=== PATIENT | female | born 1950 | race Caucasian/White ===

== ENCOUNTER 2022-09-06 12:12 | Inpatient (IN) | payer MEDICARE ==
[2022-09-06] MEDS ORDERED: Ondansetron PF 4 MG/2 ML Vial ONE (12:23)
[2022-09-06] MEDS ORDERED: Morphine 4 MG/ML VIAL ONE (12:23)
[2022-09-06] MEDS ORDERED: Haloperidol Lactate 5 MG/ML VIAL ONE ×2 (12:57→14:30)
[2022-09-06 13:13] LABS: ALT (SGPT) 167 U/L (8-55); AST (SGOT) 357 U/L (5-34); Albumin 2.5 g/dL (3.4-4.8); Alkaline Phosphatase 357 U/L (40-110); Anion Gap 13 mmol/L (10-20); BUN (Urea Nitrogen) 7 mg/dL (9.8-20.1); Bilirubin, Direct 6.2 mg/dL (0.1-0.3); Bilirubin, Total 8.5 mg/dL (0.2-1.2); Calc. Creatinine Clearance 0 mL/min (70-130); Calcium 8.3 mg/dL (7.8-10.44); Carbon Dioxide 25 mmol/L (23-31); Chloride 93 mmol/L (98-107); Eosinophils 1 % (0-10); Estimated GFR 90; Glucose 118 mg/dL (80-115); Hemoglobin 11.3 g/dL (12.0-16.0); Lipase 41 U/L (8-78); Lymphocytes 17 % (21-51); MDiff Complete? YES; Macrocytosis MODERATE=16-30 cells (100X) (0-5/hpf); Mean Corpuscular Hemoglobin 37.1 pg (27.0-31.0); Mean Platelet Volume 7.8 fL (7.4-10.4); Monocytes 9 % (0-10); Neutrophil 65 % (42-75); Platelet Count 161 10x3/uL (130-400); Platelet Morphology Comment Appears Adequate; Polychromasia SLIGHT = 2-3 cells (100X) (0-2/hpf); Potassium 3.3 mmol/L (3.5-5.1); Protein, Total 6.7 g/dL (5.8-8.1); RBC Distribution Width 15.4 % (11.5-14.5); Reactive Lymphocytes 8 % (0-10); Red Blood Cell (RBC) Count 3.05 mill/uL (4.20-5.40); Sodium 128 mmol/L (136-145); Target Cells SLIGHT = 2-5 cells (100X) (0-1/hpf); White Blood Cell (WBC) Count 10.3 10x3/uL (4.8-10.8)
[2022-09-06] MEDS ORDERED: Vancomycin 1 GM/200 ML (FROZEN) BAG ONE (13:46)
[2022-09-06] MEDS ORDERED: Senokot S 8.6-50 MG TAB PO PRN (14:17)
[2022-09-06] MEDS ORDERED: Ondansetron PF 4 MG/2 ML Vial IVP PRN (14:17)
[2022-09-06] MEDS ORDERED: Ondansetron ODT 4 MG TAB PO PRN (14:17)
[2022-09-06] MEDS ORDERED: Calcium Carbonate 500 MG ChewTAB PO PRN (14:17)
[2022-09-06] MEDS ORDERED: Albuterol Sulfate 2.5 mg/3 ml Neb NEB PRN (14:20)
[2022-09-06] MEDS ORDERED: Morphine 2 MG/ML VIAL SLOW IVP PRN (16:00)
[2022-09-06 16:01] LABS: Lactic Acid 1.9 mmol/L (0.5-2.2)
[2022-09-06 17:03] LABS: INR-International Normal Ratio 1.2; PTT 36.3 sec (22.9-36.1); Prothrombin Time 15.7 sec (12.0-14.7)
[2022-09-06] MEDS ORDERED: FLU VACC QS2022-23(65YR UP)/PF 240 MCG/0.7 ML SYRINGE IM ONE (17:30)
[2022-09-06] MEDS ORDERED: Morphine 4 MG/ML VIAL SLOW IVP PRN (17:30)
[2022-09-06] MEDS: Sodium Chloride 0.9% 1,000 ML IV SCH (17:38)
[2022-09-06] MEDS: Potassium Chloride 20 MEQ in Premix Bag 1 BAG IVPB SCH (17:38)
[2022-09-06 17:50] LABS: SARS-CoV-2 NAA Rapid Test Not Detected (NotDetected)
[2022-09-06 19:13] LABS: HBSAg Index 0.27 S/CO (0-0.99); Hep A IgM AB Non-Reactive (NonReactive); Hep A IgM S/CO 0.26 S/CO (0-0.79); Hep B Surf Ag Non-Reactive S/CO (NonReactive); Hep C IgG Ab Non-Reactive (NonReactive); Hep C Index 0.16 S/CO (0-0.79); Hepatitis B Core IgM Abs Non-Reactive (NonReactive)
[2022-09-06] MEDS ORDERED: Potassium Chloride 20 MEQ in Premix Bag 1 BAG IVPB SCH (19:15)
[2022-09-06] MEDS: Pantoprazole 40 MG VIAL IVP SCH (21:12)
[2022-09-07] MEDS: Sodium Chloride 0.9% 1,000 ML IV SCH ×2 (00:30→08:36)
[2022-09-07 06:11] LABS: #Lymphocytes 1.5 thou/uL (1.20-3.40); #Monocytes 1.6 thou/uL (0.11-0.59); #Neutrophils 9.2 thou/uL (1.40-6.50); %Eosinophils 0.3 % (0.0-10.0); %Lymphocytes 12.1 % (21.0-51.0); %Monocytes 12.8 % (0.0-10.0); %Neutrophils 74.8 % (42.0-75.0); Hemoglobin 9.4 g/dL (12.0-16.0); Mean Corpuscular HGB CONC 32.7 g/dL (32.0-36.0); Mean Corpuscular Hemoglobin 37.3 pg (27.0-31.0); Mean Platelet Volume 7.6 fL (7.4-10.4); Platelet Count 131 10x3/uL (130-400); RBC Distribution Width 15.7 % (11.5-14.5); Red Blood Cell (RBC) Count 2.51 mill/uL (4.20-5.40); White Blood Cell (WBC) Count 12.3 10x3/uL (4.8-10.8)
[2022-09-07 06:29] LABS: INR-International Normal Ratio 1.3; Prothrombin Time 16.3 sec (12.0-14.7)
[2022-09-07 06:35] LABS: ALT (SGPT) 192 U/L (8-55); AST (SGOT) 450 U/L (5-34); Alkaline Phosphatase 333 U/L (40-110); Anion Gap 12 mmol/L (10-20); BUN (Urea Nitrogen) 12 mg/dL (9.8-20.1); Bilirubin, Total 8.4 mg/dL (0.2-1.2); Calc. Creatinine Clearance 41 mL/min (70-130); Calcium 7.5 mg/dL (7.8-10.44); Carbon Dioxide 21 mmol/L (23-31); Chloride 102 mmol/L (98-107); Estimated GFR 65; Globulin 3.4 g/dL (2.4-3.5); Glucose 77 mg/dL (80-115); Magnesium 1.7 mg/dL (1.6-2.6); Potassium 4.6 mmol/L (3.5-5.1); Protein, Total 5.4 g/dL (5.8-8.1); Sodium 130 mmol/L (136-145)
[2022-09-07] MEDS: Potassium Chloride 20 MEQ in Premix Bag 1 BAG IVPB SCH (07:45)
[2022-09-07] MEDS: Ursodiol 300 MG CAP PO SCH ×2 (12:19→18:01)
[2022-09-07] MEDS: Pantoprazole 40 MG VIAL IVP SCH (20:26)
[2022-09-07] MEDS: Acetaminophen 325 MG TAB PO PRN (20:31)
[2022-09-08 06:22] LABS: #Eosinphils 0.1 thou/uL (0.0-0.7); #Lymphocytes 1.9 thou/uL (1.20-3.40); #Monocytes 1.4 thou/uL (0.11-0.59); #Neutrophils 5.9 thou/uL (1.40-6.50); %Basophils 0.1 % (0.0-1.0); %Eosinophils 0.8 % (0.0-10.0); %Lymphocytes 20.2 % (21.0-51.0); %Monocytes 14.9 % (0.0-10.0); %Neutrophils 64.1 % (42.0-75.0); Hemoglobin 9.2 g/dL (12.0-16.0); Mean Corpuscular HGB CONC 33.5 g/dL (32.0-36.0); Mean Corpuscular Hemoglobin 37.8 pg (27.0-31.0); Mean Platelet Volume 7.8 fL (7.4-10.4); Platelet Count 123 10x3/uL (130-400); RBC Distribution Width 16.2 % (11.5-14.5); Red Blood Cell (RBC) Count 2.43 mill/uL (4.20-5.40); White Blood Cell (WBC) Count 9.2 10x3/uL (4.8-10.8)
[2022-09-08 06:55] LABS: ALT (SGPT) 225 U/L (8-55); AST (SGOT) 467 U/L (5-34); Albumin 2.1 g/dL (3.4-4.8); Alkaline Phosphatase 347 U/L (40-110); Anion Gap 12 mmol/L (10-20); BUN (Urea Nitrogen) 14 mg/dL (9.8-20.1); Calc. Creatinine Clearance 22 mL/min (70-130); Calcium 8.2 mg/dL (7.8-10.44); Carbon Dioxide 19 mmol/L (23-31); Chloride 103 mmol/L (98-107); Estimated GFR 31; Globulin 3.3 g/dL (2.4-3.5); Glucose 90 mg/dL (80-115); Magnesium 1.8 mg/dL (1.6-2.6); Protein, Total 5.4 g/dL (5.8-8.1); Sodium 130 mmol/L (136-145)
[2022-09-08] MEDS: Ursodiol 300 MG CAP PO SCH ×3 (08:43→17:15)
[2022-09-08] MEDS ORDERED: Sodium Chloride 0.9% 1,000 ML IV SCH (16:45)
[2022-09-08] MEDS: Pantoprazole 40 MG VIAL IVP SCH (20:03)
[2022-09-09 05:32] LABS: Band 1 % (5-11); Eosinophils 3 % (0-10); Hemoglobin 9.2 g/dL (12.0-16.0); Lymphocytes 26 % (21-51); MDiff Complete? YES; Mean Corpuscular HGB CONC 33.2 g/dL (32.0-36.0); Mean Corpuscular Hemoglobin 37.6 pg (27.0-31.0); Mean Platelet Volume 7.6 fL (7.4-10.4); Monocytes 8 % (0-10); Neutrophil 62 % (42-75); Platelet Count 122 10x3/uL (130-400); RBC Distribution Width 16.4 % (11.5-14.5); Red Blood Cell (RBC) Count 2.46 mill/uL (4.20-5.40); White Blood Cell (WBC) Count 6.7 10x3/uL (4.8-10.8)
[2022-09-09 06:01] LABS: Anion Gap 9 mmol/L (10-20); BUN (Urea Nitrogen) 13 mg/dL (9.8-20.1); Calc. Creatinine Clearance 24 mL/min (70-130); Calcium 8.2 mg/dL (7.8-10.44); Carbon Dioxide 20 mmol/L (23-31); Chloride 104 mmol/L (98-107); Estimated GFR 34; Glucose 98 mg/dL (80-115); Potassium 3.9 mmol/L (3.5-5.1); Sodium 129 mmol/L (136-145)
[2022-09-09 08:17] LABS: Bacteria/HPF None Seen HPF (None Seen); Bilirubin 1+ (Negative); Blood, Urine Negative (Negative); Calcium Oxalate Crystals 4+ HPF (None Seen); Clarity Clear (Clear); Glucose, Urine (Dipstick) Normal (Negative); Ketone, Urine Negative (Negative); Leukocyte 250 Leu/uL (Negative); Nitrite Negative (Negative); Protein, Urine (Dipstick) Negative (Neg-Trace); RBC/HPF 0-3 HPF (0-3); Specific Gravity, Urine 1.014 (1.002-1.036); Squamous Epithelial 0-3 HPF (0-3); Urobilinogen Normal mg/dL (Less than 2); Yeast-Budding 1+ HPF (None Seen); Yeast-Hyphae 1+ HPF (None Seen); pH, Urine 5.5 (5.0-9.0)
[2022-09-09] MEDS ORDERED: Meropenem 1 GM in Sodium Chloride 0.9% 100 ML IVPB SCH (09:00)
[2022-09-09] MEDS: Sodium Chloride 0.9% 1,000 ML IV SCH ×3 (09:07→23:39)
[2022-09-09] MEDS: Ursodiol 300 MG CAP PO SCH ×3 (09:07→16:22)
[2022-09-09] MEDS: Meropenem 500 MG in Sodium Chloride 0.9% 100 ML IVPB SCH (16:22)
[2022-09-09] MEDS: Acetaminophen 325 MG TAB PO PRN (23:38)
[2022-09-10] MEDS: Meropenem 500 MG in Sodium Chloride 0.9% 100 ML IVPB SCH ×3 (04:15→18:34)
[2022-09-10 05:04] LABS: #Eosinphils 0.2 thou/uL (0.0-0.7); #Lymphocytes 1.8 thou/uL (1.20-3.40); #Monocytes 0.9 thou/uL (0.11-0.59); %Basophils 0.4 % (0.0-1.0); %Eosinophils 2.7 % (0.0-10.0); %Lymphocytes 30.9 % (21.0-51.0); %Monocytes 14.9 % (0.0-10.0); %Neutrophils 51.1 % (42.0-75.0); Hemoglobin 9.2 g/dL (12.0-16.0); Mean Corpuscular HGB CONC 32.5 g/dL (32.0-36.0); Mean Corpuscular Hemoglobin 37.1 pg (27.0-31.0); Mean Platelet Volume 7.5 fL (7.4-10.4); Platelet Count 128 10x3/uL (130-400); RBC Distribution Width 16.4 % (11.5-14.5); Red Blood Cell (RBC) Count 2.47 mill/uL (4.20-5.40); White Blood Cell (WBC) Count 5.8 10x3/uL (4.8-10.8)
[2022-09-10 05:37] LABS: ALT (SGPT) 142 U/L (8-55); AST (SGOT) 170 U/L (5-34); Alkaline Phosphatase 311 U/L (40-110); Bilirubin, Direct 4.7 mg/dL (0.1-0.3); Protein, Total 5.3 g/dL (5.8-8.1)
[2022-09-10 05:45] LABS: Anion Gap 11 mmol/L (10-20); BUN (Urea Nitrogen) 12 mg/dL (9.8-20.1); Calc. Creatinine Clearance 32 mL/min (70-130); Carbon Dioxide 19 mmol/L (23-31); Chloride 107 mmol/L (98-107); Estimated GFR 48; Glucose 80 mg/dL (80-115); Potassium 3.8 mmol/L (3.5-5.1); Sodium 133 mmol/L (136-145)
[2022-09-10] MEDS: Ursodiol 300 MG CAP PO SCH ×3 (08:13→16:51)
[2022-09-10] MEDS: Sodium Chloride 0.9% 1,000 ML IV SCH ×3 (16:52→23:04)
[2022-09-10] MEDS: Meropenem 1 GM in Sodium Chloride 0.9% 100 ML IVPB SCH (18:38)
[2022-09-10] MEDS: Acetaminophen 325 MG TAB PO PRN (23:17)
[2022-09-11] MEDS: Meropenem 1 GM in Sodium Chloride 0.9% 100 ML IVPB SCH ×2 (04:51→18:40)
[2022-09-11 05:28] LABS: ALT (SGPT) 120 U/L (8-55); AST (SGOT) 136 U/L (5-34); Alkaline Phosphatase 306 U/L (40-110); Anion Gap 8 mmol/L (10-20); BUN (Urea Nitrogen) 11 mg/dL (9.8-20.1); Bilirubin, Total 5.6 mg/dL (0.2-1.2); Calc. Creatinine Clearance 39 mL/min (70-130); Calcium 7.7 mg/dL (7.8-10.44); Carbon Dioxide 22 mmol/L (23-31); Chloride 104 mmol/L (98-107); Estimated GFR 61; Globulin 3.2 g/dL (2.4-3.5); Glucose 91 mg/dL (80-115); Potassium 3.6 mmol/L (3.5-5.1); Protein, Total 5.2 g/dL (5.8-8.1); Sodium 130 mmol/L (136-145)
[2022-09-11] MEDS: Sodium Chloride 0.9% 1,000 ML IV SCH (08:14)
[2022-09-11] MEDS: Ursodiol 300 MG CAP PO SCH ×3 (08:14→16:47)
[2022-09-11 08:54] LABS: Band 1 % (5-11); Eosinophils 1 % (0-10); Hemoglobin 9.3 g/dL (12.0-16.0); Lymphocytes 44 % (21-51); MDiff Complete? YES; Mean Corpuscular HGB CONC 33.4 g/dL (32.0-36.0); Mean Corpuscular Hemoglobin 37.9 pg (27.0-31.0); Mean Platelet Volume 7.3 fL (7.4-10.4); Metamyelocyte 1 % (0-0); Monocytes 8 % (0-10); Neutrophil 45 % (42-75); Platelet Count 127 10x3/uL (130-400); Platelet Morphology Comment Appears Adequate; RBC Distribution Width 16.3 % (11.5-14.5); RBC Morphology Normal; Red Blood Cell (RBC) Count 2.45 mill/uL (4.20-5.40); White Blood Cell (WBC) Count 5.9 10x3/uL (4.8-10.8)
[2022-09-11] MEDS ORDERED: Furosemide 40 MG TAB PO SCH (10:15)
[2022-09-11] MEDS ORDERED: HYDROcodone/Acetaminophen 5/325 mg Tablet PO PRN (12:41)
[2022-09-11] MEDS ORDERED: Communication Order-Pharmacy FS PRN (15:43)
[2022-09-11] MEDS ORDERED: Enoxaparin Sodium 80 MG/0.8 ML SYRINGE SC SCH (16:15)
[2022-09-11 16:30] LABS: Platelet Count 126 10x3/uL (130-400)
[2022-09-12] MEDS: Meropenem 1 GM in Sodium Chloride 0.9% 100 ML IVPB SCH ×2 (05:14→15:19)
[2022-09-12 08:48] VITALS: BP 121/64; TEMP 97.8
[2022-09-12] MEDS ORDERED: Apixaban 5 MG TAB PO SCH (09:00)
[2022-09-12] MEDS: Ursodiol 300 MG CAP PO SCH ×2 (09:09→12:25)
[2022-09-12 11:06] VITALS: BMI 22.1
[2022-09-12] MEDS ORDERED: Enoxaparin Sodium 80 MG/0.8 ML SYRINGE SC SCH (21:00)
== END 2022-09-12 18:30 | disposition home health service (06) | DRG 872 ==
LOC: SUATTDRO 12:12 → ERS 12:12 → MSONC 16:22
PROVIDERS: ADMIT Family Medicine; ATTEND Family Medicine
PROC: 3E03329 Introduction of Other Anti-infective into Peripheral Vein, Percutaneous Approach (ICD-10-PCS; 2022-09-06)
PROC: 02HV33Z Insertion of Infusion Device into Superior Vena Cava, Percutaneous Approach (ICD-10-PCS; principal; 2022-09-10)
PROC: B5181ZA Fluoroscopy of Superior Vena Cava using Low Osmolar Contrast, Guidance (ICD-10-PCS; 2022-09-10)
PROC: B548ZZA Ultrasonography of Superior Vena Cava, Guidance (ICD-10-PCS; 2022-09-10)
DX: A41.51 Sepsis due to Escherichia coli [E. coli] (principal); Z20.822 Contact with and (suspected) exposure to COVID-19; K83.01 Primary sclerosing cholangitis; E87.1 Hypo-osmolality and hyponatremia; N30.00 Acute cystitis without hematuria; N17.9 Acute kidney failure, unspecified; Z16.12 Extended spectrum beta lactamase (ESBL) resistance; T81.72XA Complication of vein following a procedure, not elsewhere classified, initial encounter; I82.622 Acute embolism and thrombosis of deep veins of left upper extremity; K74.60 Unspecified cirrhosis of liver; R94.5 Abnormal results of liver function studies; K21.9 Gastro-esophageal reflux disease without esophagitis; I80.8 Phlebitis and thrombophlebitis of other sites; Y84.8 Other medical procedures as the cause of abnormal reaction of the patient, or of later complication, without mention of misadventure at the time of the procedure; Z76.82 Awaiting organ transplant status; Z88.1 Allergy status to other antibiotic agents; Z88.8 Allergy status to other drugs, medicaments and biological substances; Z90.81 Acquired absence of spleen; Z90.49 Acquired absence of other specified parts of digestive tract; Z79.899 Other long term (current) drug therapy
CPT/HCPCS: 36415; 36569; 71045; 74177; 74181; 80048; 80053; 80074; 80076; 81001; 81003; 82140; 83605; 83690; 83735; 84145; 84484; 85025; 85610; 85730; 86301; 87040; 87077; 87086; 87149; 87186; 93005; 96361; 96365; 96366; 96374; 96375; 96376; C1751; C9113; J1200; J1630; J1650; J1956; J2185; J2270; J2405; J3370-JW; J3480; J3490; J7050; Q9967; U0002

== ENCOUNTER 2022-11-18 09:33 | Outpatient (CLI) | payer MEDICARE | END 2022-11-18 09:34 | disposition home or self-care (01) | LOC: BICRAD 09:33 | PROVIDERS: ATTEND Family Medicine | DX: M77.52 Other enthesopathy of left foot and ankle (principal) ==

== ENCOUNTER 2023-01-18 20:43 | Emergency (ER) | payer MEDICARE ==
[~2023-01-18 20:43] MED LIST: Iopamidol-370 76% 500 ML MDV (1 ML CHARGE) ONE
[2023-01-18 21:15] LABS: #Lymphocytes 1.9 thou/uL (1.20-3.40); #Monocytes 1.4 thou/uL (0.11-0.59); #Neutrophils 6.2 thou/uL (1.40-6.50); %Basophils 0.3 % (0.0-1.0); %Eosinophils 0.1 % (0.0-10.0); %Lymphocytes 19.9 % (21.0-51.0); %Monocytes 14.4 % (0.0-10.0); %Neutrophils 65.2 % (42.0-75.0); Hemoglobin 10.3 g/dL (12.0-16.0); Mean Corpuscular HGB CONC 33.1 g/dL (32.0-36.0); Mean Corpuscular Hemoglobin 35.5 pg (27.0-31.0); Mean Platelet Volume 7.4 fL (7.4-10.4); Platelet Count 192 10x3/uL (130-400); RBC Distribution Width 14.7 % (11.5-14.5); Red Blood Cell (RBC) Count 2.89 mill/uL (4.20-5.40); White Blood Cell (WBC) Count 9.5 10x3/uL (4.8-10.8)
[2023-01-18 21:31] LABS: ALT (SGPT) 32 U/L (8-55); AST (SGOT) 48 U/L (5-34); Albumin 2.9 g/dL (3.4-4.8); Alkaline Phosphatase 202 U/L (40-110); Anion Gap 11 mmol/L (10-20); BUN (Urea Nitrogen) 17 mg/dL (9.8-20.1); Bilirubin, Total 1.8 mg/dL (0.2-1.2); Calc. Creatinine Clearance 0 mL/min (70-130); Calcium 8.9 mg/dL (7.8-10.44); Carbon Dioxide 19 mmol/L (23-31); Chloride 105 mmol/L (98-107); Estimated GFR 67; Globulin 4.1 g/dL (2.4-3.5); Glucose 136 mg/dL (80-115); Lipase 64 U/L (8-78); Potassium 5.3 mmol/L (3.5-5.1); Sodium 130 mmol/L (136-145)
[2023-01-18] MEDS ORDERED: Morphine 4 MG/ML VIAL ONE (23:00)
[2023-01-18 23:14] LABS: Bacteria/HPF None Seen HPF (None Seen); Bilirubin Negative (Negative); Blood, Urine Negative (Negative); Clarity Clear (Clear); Glucose, Urine (Dipstick) Normal (Negative); Ketone, Urine Negative (Negative); Leukocyte 75 Leu/uL (Negative); Nitrite Negative (Negative); Protein, Urine (Dipstick) Negative (Neg-Trace); RBC/HPF 0-3 HPF (0-3); Specific Gravity, Urine 1.033 (1.002-1.036); Squamous Epithelial 0-3 HPF (0-3); Urobilinogen Normal mg/dL (Less than 2); pH, Urine 6.5 (5.0-9.0)
== END 2023-01-18 23:54 | disposition home or self-care (01) ==
LOC: ERS 20:43
DX: K74.3 Primary biliary cirrhosis (principal)
CPT/HCPCS: 36415; 74177; 80053; 81003; 81015; 83690; 85025; 93005; 96374; J2270; Q9967

== ENCOUNTER 2023-01-19 17:04 | Emergency (ER) | payer MEDICARE ==
[2023-01-19 18:28] LABS: Bilirubin Negative (Negative); Blood, Urine Negative (Negative); Clarity Clear (Clear); Glucose, Urine (Dipstick) Normal (Negative); Ketone, Urine Negative (Negative); Leukocyte Negative Leu/uL (Negative); Nitrite Negative (Negative); Protein, Urine (Dipstick) Negative (Neg-Trace); Specific Gravity, Urine 1.009 (1.002-1.036); Urobilinogen Normal mg/dL (Less than 2); pH, Urine 6.5 (5.0-9.0)
[2023-01-19] MEDS ORDERED: Morphine 4 MG/ML VIAL ONE (18:36)
[2023-01-19 19:16] LABS: Mean Corpuscular HGB CONC 33.6 g/dL (32.0-36.0); Mean Corpuscular Hemoglobin 35.9 pg (27.0-31.0); Mean Platelet Volume 7.3 fL (7.4-10.4); Platelet Count 178 10x3/uL (130-400); RBC Distribution Width 14.6 % (11.5-14.5); Red Blood Cell (RBC) Count 2.78 mill/uL (4.20-5.40); White Blood Cell (WBC) Count 8.9 10x3/uL (4.8-10.8)
[2023-01-19 19:23] LABS: PTT 29.6 sec (22.9-36.1)
[2023-01-19 19:36] LABS: Band 2 % (5-11); Lymphocytes 9 % (21-51); MDiff Complete? YES; Macrocytosis SLIGHT = 6-15 cells (100X) (0-5/hpf); Monocytes 12 % (0-10); Neutrophil 77 % (42-75); Platelet Morphology Comment Appears Adequate; Polychromasia SLIGHT = 2-3 cells (100X) (0-2/hpf)
[2023-01-19 19:38] LABS: ALT (SGPT) 39 U/L (8-55); AST (SGOT) 60 U/L (5-34); Albumin 2.8 g/dL (3.4-4.8); Alkaline Phosphatase 199 U/L (40-110); Anion Gap 10 mmol/L (10-20); BUN (Urea Nitrogen) 16 mg/dL (9.8-20.1); Bilirubin, Total 2.4 mg/dL (0.2-1.2); Calc. Creatinine Clearance 0 mL/min (70-130); Calcium 8.5 mg/dL (7.8-10.44); Carbon Dioxide 23 mmol/L (23-31); Chloride 101 mmol/L (98-107); Estimated GFR 70; Globulin 3.9 g/dL (2.4-3.5); Glucose 103 mg/dL (80-115); Lipase 68 U/L (8-78); Potassium 4.6 mmol/L (3.5-5.1); Protein, Total 6.7 g/dL (5.8-8.1); Sodium 129 mmol/L (136-145)
== END 2023-01-19 20:54 | disposition home or self-care (01) ==
LOC: ERS 17:04
DX: R10.11 Right upper quadrant pain (principal)
CPT/HCPCS: 36415; 80053; 81003; 83605; 83690; 85025; 85610; 85730; 87040; 87077; 87086; 87149; 93005; 96365; 96375; J1956; J2270

== ENCOUNTER 2023-01-27 21:29 | Observation (INO) | payer MEDICARE, OTHER ==
[2023-01-27] MEDS ORDERED: Metoclopramide HCl 10 MG/2 ML VIAL ONE (21:57)
[2023-01-27 22:09] LABS: #Basophils 0.1 thou/uL (0.0-0.2); #Lymphocytes 1.7 thou/uL (1.20-3.40); #Monocytes 1.5 thou/uL (0.11-0.59); #Neutrophils 7.7 thou/uL (1.40-6.50); %Basophils 0.6 % (0.0-1.0); %Eosinophils 0.1 % (0.0-10.0); %Lymphocytes 15.5 % (21.0-51.0); %Monocytes 13.5 % (0.0-10.0); %Neutrophils 70.2 % (42.0-75.0); Hemoglobin 11.4 g/dL (12.0-16.0); Mean Corpuscular HGB CONC 33.9 g/dL (32.0-36.0); Mean Corpuscular Hemoglobin 35.9 pg (27.0-31.0); Mean Platelet Volume 6.8 fL (7.4-10.4); Platelet Count 226 10x3/uL (130-400); RBC Distribution Width 14.9 % (11.5-14.5); Red Blood Cell (RBC) Count 3.17 mill/uL (4.20-5.40); White Blood Cell (WBC) Count 10.9 10x3/uL (4.8-10.8)
[2023-01-27 22:19] LABS: INR-International Normal Ratio 1.1; PTT 30.8 sec (22.9-36.1); Prothrombin Time 14.7 sec (12.0-14.7)
[2023-01-27 22:31] LABS: ALT (SGPT) 41 U/L (8-55); AST (SGOT) 50 U/L (5-34); Alkaline Phosphatase 235 U/L (40-110); Anion Gap 16 mmol/L (10-20); BUN (Urea Nitrogen) 26 mg/dL (9.8-20.1); Bilirubin, Total 3.1 mg/dL (0.2-1.2); CK (CPK) 22 U/L (29-168); Calc. Creatinine Clearance 0 mL/min (70-130); Carbon Dioxide 21 mmol/L (23-31); Chloride 93 mmol/L (98-107); Estimated GFR 58; Globulin 3.6 g/dL (2.4-3.5); Glucose 124 mg/dL (80-115); Lipase 31 U/L (8-78); Protein, Total 6.6 g/dL (5.8-8.1); Sodium 125 mmol/L (136-145)
[2023-01-28 00:02] LABS: Bilirubin Negative (Negative); Blood, Urine Negative (Negative); Clarity Clear (Clear); Glucose, Urine (Dipstick) Normal (Negative); Ketone, Urine Negative (Negative); Leukocyte Negative Leu/uL (Negative); Nitrite Negative (Negative); Protein, Urine (Dipstick) Negative (Neg-Trace); Specific Gravity, Urine 1.016 (1.002-1.036); Urobilinogen Normal mg/dL (Less than 2); pH, Urine 6.5 (5.0-9.0)
[2023-01-28] MEDS ORDERED: Ondansetron PF 4 MG/2 ML Vial IVP PRN (01:06)
[2023-01-28] MEDS ORDERED: Acetaminophen 325 MG TAB PO PRN (01:06)
[2023-01-28 01:45] VITALS: BMI 20.2
[2023-01-28 02:16] LABS: Amphetamine Not Detected (NotDetected); Barbiturates Screen Not Detected (NotDetected); Benzodiazepine Screen Not Detected (NotDetected); Cocaine Metabolite Screen Not Detected (NotDetected); Methadone Not Detected (NotDetected); Methamphetamine Not Detected (NotDetected); Opiate Screen Detected (NotDetected); Oxycodone Screen Not Detected (NotDetected); Phencyclidine (PCP) Not Detected (NotDetected); THC/Cannabinoid Screen Not Detected (NotDetected); Tricyclic Screen Not Detected (NotDetected)
[2023-01-28 04:39] LABS: #Basophils 0.1 thou/uL (0.0-0.2); #Lymphocytes 1.5 thou/uL (1.20-3.40); #Monocytes 1.4 thou/uL (0.11-0.59); #Neutrophils 7.4 thou/uL (1.40-6.50); %Basophils 0.6 % (0.0-1.0); %Eosinophils 0.3 % (0.0-10.0); %Lymphocytes 14.6 % (21.0-51.0); %Monocytes 13.7 % (0.0-10.0); %Neutrophils 70.8 % (42.0-75.0); Hemoglobin 9.6 g/dL (12.0-16.0); Mean Corpuscular HGB CONC 32.4 g/dL (32.0-36.0); Mean Corpuscular Hemoglobin 34.3 pg (27.0-31.0); Mean Platelet Volume 6.6 fL (7.4-10.4); Platelet Count 191 10x3/uL (130-400); RBC Distribution Width 14.7 % (11.5-14.5); Red Blood Cell (RBC) Count 2.79 mill/uL (4.20-5.40); White Blood Cell (WBC) Count 10.5 10x3/uL (4.8-10.8)
[2023-01-28 05:00] LABS: ALT (SGPT) 34 U/L (8-55); AST (SGOT) 41 U/L (5-34); Albumin 2.5 g/dL (3.4-4.8); Alkaline Phosphatase 191 U/L (40-110); Anion Gap 12 mmol/L (10-20); BUN (Urea Nitrogen) 24 mg/dL (9.8-20.1); Bilirubin, Total 2.5 mg/dL (0.2-1.2); Calc. Creatinine Clearance 51 mL/min (70-130); Calcium 8.4 mg/dL (7.8-10.44); Carbon Dioxide 20 mmol/L (23-31); Chloride 99 mmol/L (98-107); Estimated GFR 82; Globulin 3.2 g/dL (2.4-3.5); Glucose 101 mg/dL (80-115); Potassium 4.7 mmol/L (3.5-5.1); Protein, Total 5.7 g/dL (5.8-8.1); Sodium 126 mmol/L (136-145)
[2023-01-28] MEDS ORDERED: Metoclopramide HCl 10 MG/2 ML VIAL IVP PRN (08:00)
[2023-01-28] MEDS ORDERED: Sodium Chloride 0.9% 1,000 ML IV SCH ×2 (08:00→13:45)
[2023-01-28] MEDS ORDERED: Non-Formulary Item 1 EACH (Omeprazole [Omeprazole] 20 MG Capsule.Dr) PO SCH (09:00)
[2023-01-28 15:19] LABS: Anion Gap 12 mmol/L (10-20); BUN (Urea Nitrogen) 21 mg/dL (9.8-20.1); Calc. Creatinine Clearance 46 mL/min (70-130); Calcium 8.6 mg/dL (7.8-10.44); Carbon Dioxide 20 mmol/L (23-31); Chloride 99 mmol/L (98-107); Estimated GFR 72; Glucose 117 mg/dL (80-115); Potassium 4.6 mmol/L (3.5-5.1); Sodium 126 mmol/L (136-145)
[2023-01-28] MEDS ORDERED: Morphine 2 MG/ML VIAL SLOW IVP SCH (22:45)
[2023-01-28] MEDS ORDERED: traMADol HCl 50 MG TAB PO PRN (23:08)
[2023-01-29 05:09] LABS: #Lymphocytes 1.7 thou/uL (1.20-3.40); #Neutrophils 4.6 thou/uL (1.40-6.50); %Basophils 0.5 % (0.0-1.0); %Eosinophils 0.5 % (0.0-10.0); %Lymphocytes 23.6 % (21.0-51.0); %Monocytes 12.9 % (0.0-10.0); %Neutrophils 62.5 % (42.0-75.0); Hemoglobin 9.5 g/dL (12.0-16.0); Mean Corpuscular HGB CONC 32.9 g/dL (32.0-36.0); Mean Corpuscular Hemoglobin 35.3 pg (27.0-31.0); Mean Platelet Volume 6.6 fL (7.4-10.4); Platelet Count 162 10x3/uL (130-400); RBC Distribution Width 14.9 % (11.5-14.5); Red Blood Cell (RBC) Count 2.69 mill/uL (4.20-5.40); White Blood Cell (WBC) Count 7.3 10x3/uL (4.8-10.8)
[2023-01-29 05:35] LABS: ALT (SGPT) 38 U/L (8-55); AST (SGOT) 54 U/L (5-34); Albumin 2.4 g/dL (3.4-4.8); Alkaline Phosphatase 190 U/L (40-110); Anion Gap 9 mmol/L (10-20); BUN (Urea Nitrogen) 16 mg/dL (9.8-20.1); Bilirubin, Total 2.3 mg/dL (0.2-1.2); Calc. Creatinine Clearance 56 mL/min (70-130); Calcium 8.1 mg/dL (7.8-10.44); Carbon Dioxide 19 mmol/L (23-31); Chloride 104 mmol/L (98-107); Estimated GFR 90; Globulin 3.2 g/dL (2.4-3.5); Glucose 107 mg/dL (80-115); Potassium 4.8 mmol/L (3.5-5.1); Protein, Total 5.6 g/dL (5.8-8.1); Sodium 127 mmol/L (136-145)
[2023-01-29] MEDS ORDERED: Furosemide 40 MG TAB PO SCH (07:30)
[2023-01-29] MEDS ORDERED: Spironolactone 100 MG TAB PO SCH (08:00)
[2023-01-29] MEDS: Ursodiol 300 MG CAP PO SCH ×2 (08:53→11:49)
[2023-01-29 11:43] VITALS: BP 101/58; TEMP 98.3
== END 2023-01-29 11:59 | disposition home or self-care (01) ==
LOC: ERS 21:29 → 2SW 01-28 00:15
PROVIDERS: ADMIT Internal Medicine; ATTEND Internal Medicine
DX: E87.1 Hypo-osmolality and hyponatremia (principal); R11.2 Nausea with vomiting, unspecified; R10.11 Right upper quadrant pain; K74.3 Primary biliary cirrhosis; K83.01 Primary sclerosing cholangitis; D64.9 Anemia, unspecified; R01.1 Cardiac murmur, unspecified; I07.1 Rheumatic tricuspid insufficiency; E78.5 Hyperlipidemia, unspecified; J15.0 Pneumonia due to Klebsiella pneumoniae; Z79.2 Long term (current) use of antibiotics; Z79.899 Other long term (current) drug therapy; Z88.1 Allergy status to other antibiotic agents; Z88.5 Allergy status to narcotic agent; Z88.8 Allergy status to other drugs, medicaments and biological substances
CPT/HCPCS: 36415; 80053; 80306; 81003; 82550; 83605; 83690; 83930; 83935; 84300; 84484; 85025; 85610; 85730; 87040; 93005; 93306; 96365; 96372; 96375; G0378; J1650; J2272; J2405; J2765; J7050

== ENCOUNTER 2023-01-30 12:16 | Emergency (ER) | payer MEDICARE, OTHER ==
[2023-01-30] MEDS ORDERED: Ondansetron PF 4 MG/2 ML Vial ONE (12:48)
[2023-01-30 13:16] LABS: Bilirubin Negative (Negative); Blood, Urine Negative (Negative); Clarity Clear (Clear); Glucose, Urine (Dipstick) Normal (Negative); Ketone, Urine Negative (Negative); Leukocyte Negative Leu/uL (Negative); Nitrite Negative (Negative); Protein, Urine (Dipstick) Negative (Neg-Trace); Specific Gravity, Urine 1.007 (1.002-1.036); Urobilinogen Normal mg/dL (Less than 2)
[2023-01-30 14:02] LABS: Hemoglobin 9.8 g/dL (12.0-16.0); Mean Corpuscular HGB CONC 33.3 g/dL (32.0-36.0); Mean Corpuscular Hemoglobin 35.9 pg (27.0-31.0); Mean Platelet Volume 6.9 fL (7.4-10.4); Platelet Count 125 10x3/uL (130-400); RBC Distribution Width 15.6 % (11.5-14.5); Red Blood Cell (RBC) Count 2.71 mill/uL (4.20-5.40)
[2023-01-30 14:04] LABS: ALT (SGPT) 49 U/L (8-55); AST (SGOT) 63 U/L (5-34); Albumin 2.5 g/dL (3.4-4.8); Alkaline Phosphatase 209 U/L (40-110); Anion Gap 11 mmol/L (10-20); BUN (Urea Nitrogen) 15 mg/dL (9.8-20.1); Bilirubin, Direct 1.6 mg/dL (0.1-0.3); Calc. Creatinine Clearance 0 mL/min (70-130); Calcium 7.8 mg/dL (7.8-10.44); Carbon Dioxide 20 mmol/L (23-31); Chloride 97 mmol/L (98-107); Estimated GFR 78; Glucose 91 mg/dL (80-115); Lipase 113 U/L (8-78); Protein, Total 5.7 g/dL (5.8-8.1); Sodium 124 mmol/L (136-145)
[2023-01-30 14:08] LABS: Anisocytosis SLIGHT = 6-15 cells (100X) (0-5/hpf); Lymphocytes 6 % (21-51); MDiff Complete? YES; Macrocytosis SLIGHT = 6-15 cells (100X) (0-5/hpf); Monocytes 20 % (0-10); Neutrophil 74 % (42-75); Platelet Morphology Comment Appears Decreased; Polychromasia SLIGHT = 2-3 cells (100X) (0-2/hpf)
== END 2023-01-30 15:15 | disposition home or self-care (01) ==
LOC: ERS 12:16
DX: R10.11 Right upper quadrant pain (principal); R10.816 Epigastric abdominal tenderness; R10.811 Right upper quadrant abdominal tenderness
CPT/HCPCS: 36415; 71046; 74177; 80048; 80076; 81003; 83605; 83690; 84484; 85025; 93005; 96374; J2405

== ENCOUNTER 2023-01-30 21:47 | Emergency (ER) | payer MEDICARE, OTHER ==
[2023-01-30 23:15] LABS: #Lymphocytes 0.9 thou/uL (1.20-3.40); #Monocytes 1.2 thou/uL (0.11-0.59); #Neutrophils 8.1 thou/uL (1.40-6.50); %Basophils 0.3 % (0.0-1.0); %Eosinophils 0.1 % (0.0-10.0); %Lymphocytes 8.6 % (21.0-51.0); %Neutrophils 79.1 % (42.0-75.0); Hemoglobin 10.2 g/dL (12.0-16.0); Mean Corpuscular HGB CONC 33.4 g/dL (32.0-36.0); Mean Corpuscular Hemoglobin 35.9 pg (27.0-31.0); Mean Platelet Volume 6.6 fL (7.4-10.4); Platelet Count 126 10x3/uL (130-400); RBC Distribution Width 15.8 % (11.5-14.5); Red Blood Cell (RBC) Count 2.82 mill/uL (4.20-5.40); White Blood Cell (WBC) Count 10.2 10x3/uL (4.8-10.8)
[2023-01-30 23:18] LABS: Bilirubin 1+ (Negative); Blood, Urine Negative (Negative); Clarity Clear (Clear); Glucose, Urine (Dipstick) Normal (Negative); Ketone, Urine Negative (Negative); Leukocyte Negative Leu/uL (Negative); Nitrite Negative (Negative); Protein, Urine (Dipstick) Negative (Neg-Trace); Urobilinogen 3 mg/dL (Less than 2); pH, Urine 6.5 (5.0-9.0)
[2023-01-30 23:20] LABS: Specific Gravity, Urine 1.051 (1.002-1.036)
[2023-01-30 23:34] LABS: ALT (SGPT) 69 U/L (8-55); AST (SGOT) 108 U/L (5-34); Albumin 2.6 g/dL (3.4-4.8); Alkaline Phosphatase 239 U/L (40-110); Anion Gap 11 mmol/L (10-20); BUN (Urea Nitrogen) 15 mg/dL (9.8-20.1); Bilirubin, Total 2.8 mg/dL (0.2-1.2); Calc. Creatinine Clearance 0 mL/min (70-130); Calcium 7.9 mg/dL (7.8-10.44); Carbon Dioxide 22 mmol/L (23-31); Chloride 101 mmol/L (98-107); Estimated GFR 76; Globulin 3.5 g/dL (2.4-3.5); Glucose 97 mg/dL (80-115); Lipase 66 U/L (8-78); Potassium 4.6 mmol/L (3.5-5.1); Protein, Total 6.1 g/dL (5.8-8.1); Sodium 129 mmol/L (136-145)
== END 2023-01-31 01:06 | disposition home or self-care (01) ==
LOC: ERS 21:47
DX: R10.819 Abdominal tenderness, unspecified site (principal)
CPT/HCPCS: 36415; 83605; 83690; 99284

== ENCOUNTER 2023-02-02 14:33 | Inpatient (IN) | payer OTHER, MEDICARE ==
[2023-02-02] MEDS ORDERED: fentaNYL 50 mcg/mL 1 mL Vial ONE (16:03)
[2023-02-02] MEDS ORDERED: Morphine 4 MG/ML VIAL ONE (17:04)
[2023-02-02 17:23] LABS: Hemoglobin 9.7 g/dL (12.0-16.0); Mean Corpuscular HGB CONC 35.4 g/dL (32.0-36.0); Mean Corpuscular Hemoglobin 38.3 pg (27.0-31.0); Mean Platelet Volume 6.9 fL (7.4-10.4); Platelet Count 123 10x3/uL (130-400); RBC Distribution Width 16.5 % (11.5-14.5); Red Blood Cell (RBC) Count 2.53 mill/uL (4.20-5.40); White Blood Cell (WBC) Count 9.8 10x3/uL (4.8-10.8)
[2023-02-02 17:34] LABS: INR-International Normal Ratio 1.1
[2023-02-02 17:35] LABS: Anisocytosis SLIGHT = 6-15 cells (100X) (0-5/hpf); Lymphocytes 15 % (21-51); MDiff Complete? YES; Macrocytosis SLIGHT = 6-15 cells (100X) (0-5/hpf); Monocytes 13 % (0-10); Neutrophil 71 % (42-75); Platelet Morphology Comment Appears Decreased; Polychromasia SLIGHT = 2-3 cells (100X) (0-2/hpf); Reactive Lymphocytes 1 % (0-10)
[2023-02-02] MEDS ORDERED: Morphine 4 MG/ML VIAL SLOW IVP PRN (17:42)
[2023-02-02 17:46] LABS: ALT (SGPT) 69 U/L (8-55); AST (SGOT) 56 U/L (5-34); Albumin 2.5 g/dL (3.4-4.8); Alkaline Phosphatase 230 U/L (40-110); Anion Gap 10 mmol/L (10-20); BUN (Urea Nitrogen) 15 mg/dL (9.8-20.1); Bilirubin, Total 1.9 mg/dL (0.2-1.2); Calc. Creatinine Clearance 0 mL/min (70-130); Calcium 7.9 mg/dL (7.8-10.44); Carbon Dioxide 22 mmol/L (23-31); Chloride 98 mmol/L (98-107); Estimated GFR 84; Globulin 2.9 g/dL (2.4-3.5); Glucose 128 mg/dL (80-115); Potassium 4.4 mmol/L (3.5-5.1); Protein, Total 5.4 g/dL (5.8-8.1); Sodium 126 mmol/L (136-145)
[2023-02-02] MEDS ORDERED: Ipratropium Bromide 2.5 ml Neb NEB PRN (17:47)
[2023-02-02] MEDS ORDERED: Albuterol 2.5 MG/0.5 ML NEB NEB PRN (17:48)
[2023-02-02] MEDS ORDERED: traMADol HCl 50 MG TAB PO PRN (18:04)
[2023-02-02] MEDS: Cyclobenzaprine 10 MG TAB PO PRN (22:12)
[2023-02-02] MEDS: Sodium Chloride 1 GM TAB PO SCH (22:13)
[2023-02-02] MEDS: Sodium Chloride 0.9% 1,000 ML IV SCH (22:13)
[2023-02-02] MEDS: Famotidine/PF 20 mg/2ml Vial SLOW IVP SCH (22:13)
[2023-02-02] MEDS: Ascorbic Acid 500 mg Chewable Tablet PO SCH (22:13)
[2023-02-02] MEDS: traMADol HCl 50 MG TAB PO SCH (23:48)
[2023-02-03] MEDS: Sodium Chloride 1 GM TAB PO SCH ×3 (02:59→20:12)
[2023-02-03] MEDS: Sodium Chloride 0.9% 1,000 ML IV SCH ×4 (05:36→20:56)
[2023-02-03] MEDS: traMADol HCl 50 MG TAB PO SCH ×4 (05:36→23:24)
[2023-02-03 06:09] LABS: #Lymphocytes 1.3 thou/uL (1.20-3.40); #Monocytes 1.4 thou/uL (0.11-0.59); #Neutrophils 7.6 thou/uL (1.40-6.50); %Basophils 0.2 % (0.0-1.0); %Eosinophils 0.3 % (0.0-10.0); %Lymphocytes 12.5 % (21.0-51.0); %Monocytes 13.6 % (0.0-10.0); %Neutrophils 73.4 % (42.0-75.0); Hemoglobin 9.2 g/dL (12.0-16.0); Mean Corpuscular HGB CONC 33.6 g/dL (32.0-36.0); Mean Corpuscular Hemoglobin 36.9 pg (27.0-31.0); Mean Platelet Volume 7.2 fL (7.4-10.4); Platelet Count 107 10x3/uL (130-400); RBC Distribution Width 16.6 % (11.5-14.5); Red Blood Cell (RBC) Count 2.49 mill/uL (4.20-5.40); White Blood Cell (WBC) Count 10.4 10x3/uL (4.8-10.8)
[2023-02-03 06:16] LABS: Anion Gap 12 mmol/L (10-20); BUN (Urea Nitrogen) 15 mg/dL (9.8-20.1); Calc. Creatinine Clearance 66 mL/min (70-130); Calcium 7.8 mg/dL (7.8-10.44); Carbon Dioxide 18 mmol/L (23-31); Chloride 102 mmol/L (98-107); Estimated GFR 94; Glucose 95 mg/dL (80-115); Potassium 4.8 mmol/L (3.5-5.1); Sodium 127 mmol/L (136-145)
[2023-02-03 06:19] LABS: ALT (SGPT) 64 U/L (8-55); AST (SGOT) 50 U/L (5-34); Albumin 2.3 g/dL (3.4-4.8); Alkaline Phosphatase 226 U/L (40-110); Bilirubin, Direct 1.6 mg/dL (0.1-0.3); Bilirubin, Total 2.1 mg/dL (0.2-1.2); Protein, Total 5.2 g/dL (5.8-8.1)
[2023-02-03 06:25] LABS: INR-International Normal Ratio 1.1; PTT 31.2 sec (22.9-36.1)
[2023-02-03] MEDS ORDERED: CEFAZOLIN 2 GM in Sodium Chloride 0.9% 100 ML IVPB SCH (07:45)
[2023-02-03] MEDS: Famotidine/PF 20 mg/2ml Vial SLOW IVP SCH ×2 (09:50→20:50)
[2023-02-03] MEDS: Ferrous Sulfate 325 MG TAB PO SCH ×2 (09:50→18:18)
[2023-02-03] MEDS: Ascorbic Acid 500 mg Chewable Tablet PO SCH ×2 (09:50→20:50)
[2023-02-03] MEDS ORDERED: Promethazine 25 MG TAB PO PRN (10:07)
[2023-02-03] MEDS: Potassium Chloride 10 MEQ TAB PO SCH ×3 (12:32→20:50)
[2023-02-03] MEDS: Morphine 2 MG/ML VIAL SLOW IVP PRN (12:35)
[2023-02-03] MEDS: Ursodiol 300 MG CAP PO SCH (20:50)
[2023-02-04] MEDS: Sodium Chloride 1 GM TAB PO SCH ×3 (02:17→18:42)
[2023-02-04] MEDS: Sodium Chloride 0.9% 1,000 ML IV SCH ×2 (05:50→19:26)
[2023-02-04 05:59] LABS: ALT (SGPT) 59 U/L (8-55); AST (SGOT) 50 U/L (5-34); Albumin 2.3 g/dL (3.4-4.8); Alkaline Phosphatase 232 U/L (40-110); Anion Gap 11 mmol/L (10-20); BUN (Urea Nitrogen) 14 mg/dL (9.8-20.1); Bilirubin, Total 2.6 mg/dL (0.2-1.2); Calc. Creatinine Clearance 69 mL/min (70-130); Calcium 7.7 mg/dL (7.8-10.44); Carbon Dioxide 18 mmol/L (23-31); Chloride 104 mmol/L (98-107); Estimated GFR 95; Glucose 105 mg/dL (80-115); Magnesium 1.9 mg/dL (1.6-2.6); Phosphorus 2.1 mg/dL (2.3-4.7); Potassium 4.9 mmol/L (3.5-5.1); Protein, Total 5.3 g/dL (5.8-8.1); Sodium 128 mmol/L (136-145)
[2023-02-04] MEDS: traMADol HCl 50 MG TAB PO SCH ×4 (06:02→22:24)
[2023-02-04 06:04] LABS: Hemoglobin 9.6 g/dL (12.0-16.0); Mean Corpuscular Hemoglobin 39.7 pg (27.0-31.0); Mean Platelet Volume 6.9 fL (7.4-10.4); Platelet Count 96 10x3/uL (130-400); RBC Distribution Width 16.3 % (11.5-14.5); Red Blood Cell (RBC) Count 2.41 mill/uL (4.20-5.40); White Blood Cell (WBC) Count 11.4 10x3/uL (4.8-10.8)
[2023-02-04 06:05] LABS: Hypochromia SLIGHT = 6-15 cells (100X) (0-5/hpf); Lymphocytes 29 % (21-51); MDiff Complete? YES; Macrocytosis SLIGHT = 6-15 cells (100X) (0-5/hpf); Monocytes 7 % (0-10); Neutrophil 64 % (42-75); Platelet Morphology Comment Appears Decreased
[2023-02-04] MEDS ORDERED: Furosemide 40 MG TAB PO SCH (09:00)
[2023-02-04] MEDS ORDERED: Spironolactone 100 MG TAB PO SCH (09:00)
[2023-02-04] MEDS ORDERED: SODIUM PHOSPHATE IVPB SCH (09:15)
[2023-02-04] MEDS ORDERED: SODIUM CHLORIDE 0.9% IVPB SCH (09:15)
[2023-02-04] MEDS ORDERED: MAGNESIUM SULFATE IVPB SCH (09:15)
[2023-02-04] MEDS ORDERED: fentaNYL 50 mcg/mL 1 mL Vial ONE ×3 (10:06→12:47)
[2023-02-04] MEDS ORDERED: CEFAZOLIN 2 GM VIAL ONE (10:57)
[2023-02-04] MEDS ORDERED: Sodium Chloride 0.9% 100 ML ONE (10:57)
[2023-02-04] MEDS ORDERED: fentaNYL PF 100 MCG/2 ML SYRINGE ONE (10:58)
[2023-02-04] MEDS ORDERED: Phenylephrine 10 MG/ML VIAL ONE (10:58)
[2023-02-04] MEDS ORDERED: Rocuronium Bromide 10 MG/ML (10ML VIAL) ONE (11:06)
[2023-02-04] MEDS ORDERED: PROPOFOL 200 MG/20 ML VIAL ONE (11:06)
[2023-02-04] MEDS ORDERED: Lidocaine 1% PF 5 ML VIAL ONE (11:06)
[2023-02-04] MEDS ORDERED: Dexamethasone 20 MG/5 ML VIAL ONE (11:06)
[2023-02-04] MEDS ORDERED: Ondansetron PF 4 MG/2 ML Vial ONE (11:06)
[2023-02-04] MEDS ORDERED: SUGAMMADEX SODIUM 200 MG/2 ML VIAL ONE (11:53)
[2023-02-04] MEDS ORDERED: Promethazine HCl 25 MG/ML VIAL IM PRN (11:59)
[2023-02-04] MEDS ORDERED: Ondansetron HCl/PF 4 MG/2 ML Vial IVP PRN (11:59)
[2023-02-04] MEDS: Morphine 2 MG/ML VIAL SLOW IVP PRN (15:50)
[2023-02-04] MEDS: Clindamycin/D5W 900 MG in Premix Bag 1 BAG IVPB SCH ×2 (15:51→23:15)
[2023-02-04] MEDS: Cyclobenzaprine 10 MG TAB PO PRN (16:03)
[2023-02-04] MEDS: Ursodiol 300 MG CAP PO SCH ×3 (16:08→21:04)
[2023-02-04] MEDS: Ferrous Sulfate 325 MG TAB PO SCH ×2 (16:08→18:42)
[2023-02-04] MEDS: Ascorbic Acid 500 mg Chewable Tablet PO SCH ×2 (16:09→21:03)
[2023-02-04] MEDS: Famotidine/PF 20 mg/2ml Vial SLOW IVP SCH ×2 (16:09→21:03)
[2023-02-05] MEDS: Sodium Chloride 1 GM TAB PO SCH ×3 (02:33→18:07)
[2023-02-05] MEDS: traMADol HCl 50 MG TAB PO SCH ×5 (05:13→22:50)
[2023-02-05 05:54] LABS: #Lymphocytes 0.9 thou/uL (1.20-3.40); #Monocytes 1.1 thou/uL (0.11-0.59); #Neutrophils 9.2 thou/uL (1.40-6.50); %Eosinophils 0.2 % (0.0-10.0); %Lymphocytes 8.3 % (21.0-51.0); %Monocytes 9.9 % (0.0-10.0); %Neutrophils 81.6 % (42.0-75.0); Hemoglobin 7.4 g/dL (12.0-16.0); Mean Corpuscular HGB CONC 32.6 g/dL (32.0-36.0); Mean Corpuscular Hemoglobin 35.9 pg (27.0-31.0); Mean Platelet Volume 7.4 fL (7.4-10.4); Platelet Count 113 10x3/uL (130-400); RBC Distribution Width 16.7 % (11.5-14.5); Red Blood Cell (RBC) Count 2.05 mill/uL (4.20-5.40); White Blood Cell (WBC) Count 11.2 10x3/uL (4.8-10.8)
[2023-02-05 06:20] LABS: Anion Gap 11 mmol/L (10-20); BUN (Urea Nitrogen) 21 mg/dL (9.8-20.1); Calc. Creatinine Clearance 64 mL/min (70-130); Calcium 7.4 mg/dL (7.8-10.44); Carbon Dioxide 17 mmol/L (23-31); Chloride 103 mmol/L (98-107); Estimated GFR 93; Glucose 143 mg/dL (80-115); Magnesium 2.6 mg/dL (1.6-2.6); Phosphorus 3.9 mg/dL (2.3-4.7); Sodium 126 mmol/L (136-145)
[2023-02-05] MEDS: Ursodiol 300 MG CAP PO SCH ×3 (09:58→19:41)
[2023-02-05] MEDS: Ascorbic Acid 500 mg Chewable Tablet PO SCH ×2 (09:58→19:41)
[2023-02-05] MEDS: Ferrous Sulfate 325 MG TAB PO SCH ×2 (09:58→18:07)
[2023-02-05] MEDS: Famotidine/PF 20 mg/2ml Vial SLOW IVP SCH ×3 (09:58→19:41)
[2023-02-05] MEDS: Cyclobenzaprine 10 MG TAB PO PRN (15:21)
[2023-02-05] MEDS ORDERED: Nitroglycerin 0.4 MG TAB (25 Tab Bottle) ONE (19:37)
[2023-02-05] MEDS: Morphine 2 MG/ML VIAL SLOW IVP PRN (19:41)
[2023-02-06] MEDS: Sodium Chloride 1 GM TAB PO SCH ×3 (02:29→17:43)
[2023-02-06] MEDS: traMADol HCl 50 MG TAB PO SCH ×4 (05:39→17:43)
[2023-02-06] MEDS: Ferrous Sulfate 325 MG TAB PO SCH ×2 (09:05→17:43)
[2023-02-06] MEDS: Cyclobenzaprine 10 MG TAB PO PRN (09:05)
[2023-02-06] MEDS: Ascorbic Acid 500 mg Chewable Tablet PO SCH ×2 (09:05→21:49)
[2023-02-06] MEDS: Ursodiol 300 MG CAP PO SCH ×3 (09:05→21:50)
[2023-02-06] MEDS: Famotidine 20 MG TAB PO SCH ×2 (09:05→21:49)
[2023-02-06 11:22] LABS: #Lymphocytes 1.7 thou/uL (1.20-3.40); #Monocytes 2.2 thou/uL (0.11-0.59); #Neutrophils 11.8 thou/uL (1.40-6.50); %Monocytes 13.9 % (0.0-10.0); %Neutrophils 75.1 % (42.0-75.0); Hemoglobin 8.3 g/dL (12.0-16.0); Mean Corpuscular HGB CONC 35.3 g/dL (32.0-36.0); Mean Corpuscular Hemoglobin 38.8 pg (27.0-31.0); Platelet Count 154 10x3/uL (130-400); Red Blood Cell (RBC) Count 2.14 mill/uL (4.20-5.40); White Blood Cell (WBC) Count 15.7 10x3/uL (4.8-10.8)
[2023-02-06 11:48] LABS: Anion Gap 11 mmol/L (10-20); BUN (Urea Nitrogen) 39 mg/dL (9.8-20.1); Calc. Creatinine Clearance 50 mL/min (70-130); Calcium 7.9 mg/dL (7.8-10.44); Carbon Dioxide 17 mmol/L (23-31); Chloride 103 mmol/L (98-107); Estimated GFR 70; Glucose 134 mg/dL (80-115); Magnesium 2.8 mg/dL (1.6-2.6); Phosphorus 4.1 mg/dL (2.3-4.7); Potassium 5.5 mmol/L (3.5-5.1); Sodium 125 mmol/L (136-145)
[2023-02-06] MEDS ORDERED: Cyclobenzaprine 10 MG TAB PO PRN (12:04)
[2023-02-06] MEDS ORDERED: traMADol HCl 50 MG TAB PO PRN (12:05)
[2023-02-07] MEDS: traMADol HCl 50 MG TAB PO SCH ×5 (00:14→23:35)
[2023-02-07] MEDS: Sodium Chloride 1 GM TAB PO SCH ×3 (06:14→18:39)
[2023-02-07 06:42] LABS: Anion Gap 14 mmol/L (10-20); BUN (Urea Nitrogen) 54 mg/dL (9.8-20.1); Calc. Creatinine Clearance 42 mL/min (70-130); Calcium 7.8 mg/dL (7.8-10.44); Carbon Dioxide 18 mmol/L (23-31); Chloride 99 mmol/L (98-107); Estimated GFR 55; Glucose 117 mg/dL (80-115); Magnesium 3.4 mg/dL (1.6-2.6); Phosphorus 4.9 mg/dL (2.3-4.7); Potassium 5.9 mmol/L (3.5-5.1); Sodium 125 mmol/L (136-145)
[2023-02-07 08:02] LABS: Band 2 % (5-11); Hemoglobin 7.4 g/dL (12.0-16.0); Lymphocytes 10 % (21-51); MDiff Complete? YES; Macrocytosis SLIGHT = 6-15 cells (100X) (0-5/hpf); Mean Corpuscular HGB CONC 32.7 g/dL (32.0-36.0); Mean Corpuscular Hemoglobin 35.6 pg (27.0-31.0); Mean Platelet Volume 7.2 fL (7.4-10.4); Monocytes 14 % (0-10); Neutrophil 70 % (42-75); Nucleated RBC 1 % (0); Platelet Count 167 10x3/uL (130-400); Platelet Morphology Comment Appears Adequate; Polychromasia MODERATE = 3-4 cells (100X) (0-2/hpf); RBC Distribution Width 17.3 % (11.5-14.5); Reactive Lymphocytes 4 % (0-10); Red Blood Cell (RBC) Count 2.07 mill/uL (4.20-5.40); Target Cells SLIGHT = 2-5 cells (100X) (0-1/hpf); White Blood Cell (WBC) Count 16.3 10x3/uL (4.8-10.8)
[2023-02-07] MEDS ORDERED: Calcium Gluconate 4.6 MEQ in Sodium Chloride 0.9% 100 ML IVPB ONE (08:07)
[2023-02-07] MEDS ORDERED: Dextrose 50% Abboject 50 ML SYRINGE SLOW IVP SCH (08:15)
[2023-02-07] MEDS: Insulin Regular 300 UNITS/3 ML VIAL IVP SCH ×2 (08:42→09:43)
[2023-02-07] MEDS: Sodium Chloride 0.9% 1,000 ML IV SCH ×9 (08:43→21:19)
[2023-02-07] MEDS: Ferrous Sulfate 325 MG TAB PO SCH ×2 (08:44→18:39)
[2023-02-07] MEDS: Ascorbic Acid 500 mg Chewable Tablet PO SCH ×2 (08:44→21:10)
[2023-02-07] MEDS: Famotidine 20 MG TAB PO SCH (08:44)
[2023-02-07] MEDS ORDERED: CALCIUM GLUC 1 GM/NS 50 ML 1 GM in Premix Bag 1 BAG IVPB SCH (09:00)
[2023-02-07] MEDS: Ursodiol 300 MG CAP PO SCH ×3 (10:05→21:11)
[2023-02-07] MEDS: Ondansetron PF 4 MG/2 ML Vial IVP PRN ×2 (12:30→22:03)
[2023-02-07 15:29] LABS: Anion Gap 14 mmol/L (10-20); BUN (Urea Nitrogen) 54 mg/dL (9.8-20.1); Calc. Creatinine Clearance 46 mL/min (70-130); Calcium 7.7 mg/dL (7.8-10.44); Carbon Dioxide 17 mmol/L (23-31); Chloride 102 mmol/L (98-107); Estimated GFR 63; Glucose 109 mg/dL (80-115); Potassium 5.6 mmol/L (3.5-5.1); Sodium 127 mmol/L (136-145)
[2023-02-07] MEDS: Calcium Carbonate 500 MG ChewTAB PO PRN (23:27)
[2023-02-08] MEDS: Sodium Chloride 1 GM TAB PO SCH ×3 (01:22→17:00)
[2023-02-08] MEDS: Calcium Carbonate 500 MG ChewTAB PO PRN (03:30)
[2023-02-08] MEDS: traMADol HCl 50 MG TAB PO SCH ×3 (06:02→17:18)
[2023-02-08 07:34] LABS: #Lymphocytes 1.7 thou/uL (1.20-3.40); #Monocytes 1.9 thou/uL (0.11-0.59); %Basophils 0.2 % (0.0-1.0); %Eosinophils 0.2 % (0.0-10.0); %Lymphocytes 12.5 % (21.0-51.0); %Monocytes 13.6 % (0.0-10.0); %Neutrophils 73.5 % (42.0-75.0); Hemoglobin 7.8 g/dL (12.0-16.0); Mean Corpuscular HGB CONC 33.3 g/dL (32.0-36.0); Mean Corpuscular Hemoglobin 36.5 pg (27.0-31.0); Platelet Count 153 10x3/uL (130-400); RBC Distribution Width 18.5 % (11.5-14.5); Red Blood Cell (RBC) Count 2.14 mill/uL (4.20-5.40); White Blood Cell (WBC) Count 13.7 10x3/uL (4.8-10.8)
[2023-02-08 09:17] LABS: Anion Gap 11 mmol/L (10-20); BUN (Urea Nitrogen) 51 mg/dL (9.8-20.1); Calc. Creatinine Clearance 58 mL/min (70-130); Calcium 8.1 mg/dL (7.8-10.44); Carbon Dioxide 16 mmol/L (23-31); Chloride 105 mmol/L (98-107); Estimated GFR 83; Glucose 91 mg/dL (80-115); Magnesium 3.1 mg/dL (1.6-2.6); Phosphorus 3.2 mg/dL (2.3-4.7); Potassium 5.4 mmol/L (3.5-5.1); Sodium 127 mmol/L (136-145)
[2023-02-08] MEDS: Ascorbic Acid 500 mg Chewable Tablet PO SCH ×2 (09:26→21:45)
[2023-02-08] MEDS: Ferrous Sulfate 325 MG TAB PO SCH ×2 (09:26→17:00)
[2023-02-08] MEDS: Famotidine 20 MG TAB PO SCH (09:26)
[2023-02-08] MEDS: Sodium Chloride 0.9% 1,000 ML IV SCH (09:27)
[2023-02-08] MEDS: Ursodiol 300 MG CAP PO SCH ×3 (09:29→21:43)
[2023-02-08] MEDS ORDERED: Furosemide 20 MG/2 ML VIAL SLOW IVP SCH (14:45)
[2023-02-09] MEDS: traMADol HCl 50 MG TAB PO SCH ×2 (00:16→06:29)
[2023-02-09] MEDS: Sodium Chloride 1 GM TAB PO SCH ×3 (00:16→17:59)
[2023-02-09 06:36] LABS: Anion Gap 14 mmol/L (10-20); BUN (Urea Nitrogen) 42 mg/dL (9.8-20.1); Calc. Creatinine Clearance 55 mL/min (70-130); Calcium 7.9 mg/dL (7.8-10.44); Carbon Dioxide 13 mmol/L (23-31); Chloride 105 mmol/L (98-107); Estimated GFR 78; Glucose 112 mg/dL (80-115); Magnesium 2.5 mg/dL (1.6-2.6); Phosphorus 3.1 mg/dL (2.3-4.7); Potassium 5.7 mmol/L (3.5-5.1); Sodium 126 mmol/L (136-145)
[2023-02-09 09:36] LABS: #Eosinphils 0.1 thou/uL (0.0-0.7); #Lymphocytes 1.7 thou/uL (1.20-3.40); #Monocytes 1.8 thou/uL (0.11-0.59); #Neutrophils 8.8 thou/uL (1.40-6.50); %Basophils 0.2 % (0.0-1.0); %Eosinophils 0.5 % (0.0-10.0); %Lymphocytes 13.8 % (21.0-51.0); %Monocytes 14.7 % (0.0-10.0); %Neutrophils 70.8 % (42.0-75.0); Anisocytosis MODERATE=16-30 cells (100X) (0-5/hpf); Eosinophils 2 % (0-10); Hemoglobin 8.1 g/dL (12.0-16.0); Lymphocytes 16 % (21-51); MDiff Complete? YES; Macrocytosis MODERATE=16-30 cells (100X) (0-5/hpf); Mean Corpuscular HGB CONC 32.8 g/dL (32.0-36.0); Mean Corpuscular Hemoglobin 36.1 pg (27.0-31.0); Mean Platelet Volume 7.4 fL (7.4-10.4); Monocytes 10 % (0-10); Neutrophil 72 % (42-75); Ovalocytes SLIGHT = 2-5 cells (100X) (0-1/hpf); Platelet Count 101 10x3/uL (130-400); Platelet Morphology Comment Appears Decreased; Red Blood Cell (RBC) Count 2.23 mill/uL (4.20-5.40); White Blood Cell (WBC) Count 12.4 10x3/uL (4.8-10.8)
[2023-02-09] MEDS: Ascorbic Acid 500 mg Chewable Tablet PO SCH ×2 (09:54→21:46)
[2023-02-09] MEDS: Ursodiol 300 MG CAP PO SCH ×3 (09:54→21:46)
[2023-02-09] MEDS: Ferrous Sulfate 325 MG TAB PO SCH ×2 (09:54→17:59)
[2023-02-09] MEDS: Famotidine 20 MG TAB PO SCH (09:54)
[2023-02-10] MEDS: Sodium Chloride 1 GM TAB PO SCH ×3 (03:17→20:33)
[2023-02-10] MEDS: Calcium Carbonate 500 MG ChewTAB PO PRN (03:17)
[2023-02-10 08:15] LABS: #Eosinphils 0.1 thou/uL (0.0-0.7); #Lymphocytes 1.6 thou/uL (1.20-3.40); #Monocytes 1.7 thou/uL (0.11-0.59); #Neutrophils 7.8 thou/uL (1.40-6.50); %Basophils 0.2 % (0.0-1.0); %Eosinophils 1.1 % (0.0-10.0); %Lymphocytes 14.4 % (21.0-51.0); %Monocytes 14.9 % (0.0-10.0); %Neutrophils 69.4 % (42.0-75.0); Hemoglobin 7.5 g/dL (12.0-16.0); Mean Corpuscular HGB CONC 31.2 g/dL (32.0-36.0); Mean Corpuscular Hemoglobin 35.1 pg (27.0-31.0); Mean Platelet Volume 7.2 fL (7.4-10.4); Platelet Count 145 10x3/uL (130-400); RBC Distribution Width 19.5 % (11.5-14.5); Red Blood Cell (RBC) Count 2.15 mill/uL (4.20-5.40); White Blood Cell (WBC) Count 11.2 10x3/uL (4.8-10.8)
[2023-02-10 08:34] LABS: Anion Gap 10 mmol/L (10-20); BUN (Urea Nitrogen) 39 mg/dL (9.8-20.1); Calc. Creatinine Clearance 64 mL/min (70-130); Calcium 7.9 mg/dL (7.8-10.44); Carbon Dioxide 20 mmol/L (23-31); Chloride 101 mmol/L (98-107); Estimated GFR 93; Glucose 104 mg/dL (80-115); Magnesium 2.5 mg/dL (1.6-2.6); Phosphorus 2.8 mg/dL (2.3-4.7); Potassium 5.3 mmol/L (3.5-5.1); Sodium 126 mmol/L (136-145)
[2023-02-10] MEDS: Ferrous Sulfate 325 MG TAB PO SCH ×2 (08:59→20:33)
[2023-02-10] MEDS: Ursodiol 300 MG CAP PO SCH ×3 (09:00→22:26)
[2023-02-10] MEDS: Ascorbic Acid 500 mg Chewable Tablet PO SCH ×2 (09:00→22:26)
[2023-02-10 09:04] LABS: Macrocytosis SLIGHT = 6-15 cells (100X) (0-5/hpf)
[2023-02-10] MEDS ORDERED: Furosemide 40 MG/4 ML VIAL ONE (11:43)
[2023-02-10] MEDS: Ondansetron PF 4 MG/2 ML Vial IVP PRN ×2 (11:44→19:26)
[2023-02-10] MEDS: Scopolamine 1.5 mg/72 hour Patch TD SCH (20:52)
[2023-02-10] MEDS ORDERED: Ondansetron PF 4 MG/2 ML Vial IVP SCH (22:00)
[2023-02-10 22:35] LABS: Anion Gap 16 mmol/L (10-20); BUN (Urea Nitrogen) 48 mg/dL (9.8-20.1); Calc. Creatinine Clearance 52 mL/min (70-130); Calcium 7.8 mg/dL (7.8-10.44); Carbon Dioxide 17 mmol/L (23-31); Chloride 101 mmol/L (98-107); Estimated GFR 72; Glucose 140 mg/dL (80-115); Potassium 5.5 mmol/L (3.5-5.1); Sodium 128 mmol/L (136-145)
[2023-02-11] MEDS ORDERED: Albumin 5% 0 ML ONE ×2 (00:45)
[2023-02-11] MEDS ORDERED: Promethazine HCl 25 MG/ML VIAL IM SCH (00:45)
[2023-02-11] MEDS: Calcium Chloride 1 GM/10 ML Abboject SYRINGE ONE (00:45)
[2023-02-11] MEDS ORDERED: Albumin 5% 500 ML ONE (00:47)
[2023-02-11] MEDS ORDERED: Hydrocortisone Sod Succ/PF 100 mg/2 ml Vial IVP SCH ×2 (01:00→06:00)
[2023-02-11 01:09] LABS: Base Excess (BEa) -7.1 mEq/L (-2.0 to +3.0); Carboxyhemoglobin (COHb) 1.5 gm% (0.0-3.0); Hematocrit-ABG 26 % (36.0-47.0); O2 Tension (PaO2), arterial 85.8 mmHg (> 70.0); Potassium - ABG Lab 5.71 mmol/L (3.70-5.30); pH, Arterial 7.436 (7.35-7.45)
[2023-02-11 01:10] LABS: CO2 Tension 24.3 mmHg (35.0-45.0)
[2023-02-11 01:11] LABS: ALV-art Gradient 33.555 mmHg (0-20); Calcium, Ionized (arterial) 1.68 mmol/L (1.12-1.30); Puncture Site LBA
[2023-02-11] MEDS ORDERED: Pantoprazole 80 MG in Sodium Chloride 0.9% 100 ML IVPB SCH (01:15)
[2023-02-11] MEDS ORDERED: Piperacillin/Tazobactam 3.375 GM in Sodium Chloride 0.9% 100 ML IVPB SCH (01:15)
[2023-02-11] MEDS ORDERED: Calcium Chloride 27.2 MEQ in Sodium Chloride 0.9% 250 ML 250 ML IVPB SCH (01:15)
[2023-02-11] MEDS ORDERED: Sodium Chloride 0.9% 1,000 ML IV SCH ×5 (01:30→12:26)
[2023-02-11] MEDS ORDERED: Bisacodyl 10 MG SUPP PR SCH (02:00)
[2023-02-11] MEDS: Ondansetron PF 4 MG/2 ML Vial IVP PRN (02:40)
[2023-02-11] MEDS: Sodium Chloride 1 GM TAB PO SCH ×3 (02:58→17:21)
[2023-02-11 03:01] LABS: Hemoglobin 8.8 g/dL (12.0-16.0); Mean Corpuscular HGB CONC 34.5 g/dL (32.0-36.0); Mean Corpuscular Hemoglobin 38.3 pg (27.0-31.0); Mean Platelet Volume 7.4 fL (7.4-10.4); Platelet Count 102 10x3/uL (130-400); RBC Distribution Width 21.6 % (11.5-14.5); Red Blood Cell (RBC) Count 2.29 mill/uL (4.20-5.40)
[2023-02-11 03:19] LABS: Squamous Epithelial 0-3 HPF (0-3); WBC/HPF Greater than 50 HPF (0-3)
[2023-02-11 03:20] LABS: Bacteria/HPF 1+ HPF (None Seen)
[2023-02-11 03:25] LABS: Lactic Acid 7.5 mmol/L (0.5-2.2)
[2023-02-11] MEDS ORDERED: Sodium Chloride 0.9% 500 ML IV SCH ×2 (03:30→12:30)
[2023-02-11 03:36] LABS: Band 3 % (5-11); Lymphocytes 6 % (21-51); MDiff Complete? YES; Macrocytosis SLIGHT = 6-15 cells (100X) (0-5/hpf); Metamyelocyte 2 % (0-0); Monocytes 11 % (0-10); Myelocyte 1 % (0-0); Neutrophil 76 % (42-75); Nucleated RBC 7 % (0); Platelet Morphology Comment Appears Decreased; Polychromasia MODERATE = 3-4 cells (100X) (0-2/hpf); Target Cells MODERATE= 6-15 cells (100X) (0-1/hpf); White Blood Cell (WBC) Count 11.4 10x3/uL (4.8-10.8)
[2023-02-11 03:39] LABS: Phosphorus 4.1 mg/dL (2.3-4.7)
[2023-02-11 03:44] LABS: BUN (Urea Nitrogen) 47 mg/dL (9.8-20.1); Calc. Creatinine Clearance 46 mL/min (70-130); Carbon Dioxide 9 mmol/L (23-31); Chloride 104 mmol/L (98-107); Potassium 6.1 mmol/L (3.5-5.1); Sodium 127 mmol/L (136-145)
[2023-02-11 03:45] LABS: Calcium 9.3 mg/dL (7.8-10.44); Estimated GFR 63; Glucose 68 mg/dL (80-115); Magnesium 2.4 mg/dL (1.6-2.6)
[2023-02-11 03:46] LABS: Anion Gap 20 mmol/L (10-20)
[2023-02-11] MEDS ORDERED: Dextrose 50% Abboject 50 ML SYRINGE SLOW IVP PRN (04:18)
[2023-02-11] MEDS ORDERED: Insulin Regular 300 UNITS/3 ML VIAL IVP SCH (04:19)
[2023-02-11] MEDS ORDERED: Sodium Bicarb 50 MEQ/50 ML VIAL IVP SCH ×3 (04:30→22:15)
[2023-02-11] MEDS ORDERED: Sodium Bicarbonate 150 MEQ in Dextrose 5% in Water 1,000 ML IV SCH (04:45)
[2023-02-11] MEDS: Piperacillin/Tazobactam 3.375 GM in Sodium Chloride 0.9% 100 ML IVPB SCH ×3 (05:35→22:26)
[2023-02-11] MEDS: Ascorbic Acid 500 mg Chewable Tablet PO SCH ×2 (08:46→20:06)
[2023-02-11] MEDS: Ursodiol 300 MG CAP PO SCH ×3 (08:46→20:07)
[2023-02-11] MEDS: Ferrous Sulfate 325 MG TAB PO SCH ×2 (08:46→17:15)
[2023-02-11 08:47] LABS: ALT (SGPT) 984 U/L (8-55); AST (SGOT) 1940 U/L (5-34); Albumin 2.1 g/dL (3.4-4.8); Alkaline Phosphatase 157 U/L (40-110); Anion Gap 22 mmol/L (10-20); BUN (Urea Nitrogen) 45 mg/dL (9.8-20.1); Bilirubin, Direct 4.5 mg/dL (0.1-0.3); Calc. Creatinine Clearance 48 mL/min (70-130); Calcium 8.7 mg/dL (7.8-10.44); Carbon Dioxide 10 mmol/L (23-31); Chloride 103 mmol/L (98-107); Estimated GFR 56; Glucose 112 mg/dL (80-115); Magnesium 2.4 mg/dL (1.6-2.6); Phosphorus 4.4 mg/dL (2.3-4.7); Potassium 5.8 mmol/L (3.5-5.1); Protein, Total 3.6 g/dL (5.8-8.1); Sodium 129 mmol/L (136-145)
[2023-02-11 10:25] LABS: #Lymphocytes 1.3 thou/uL (1.20-3.40); #Monocytes 1.3 thou/uL (0.11-0.59); #Neutrophils 7.7 thou/uL (1.40-6.50); %Basophils 0.1 % (0.0-1.0); %Eosinophils 0.2 % (0.0-10.0); %Lymphocytes 12.2 % (21.0-51.0); %Monocytes 12.2 % (0.0-10.0); %Neutrophils 75.3 % (42.0-75.0); Hemoglobin 9.2 g/dL (12.0-16.0); Mean Corpuscular HGB CONC 32.9 g/dL (32.0-36.0); Mean Platelet Volume 8.6 fL (7.4-10.4); Platelet Count 100 10x3/uL (130-400); RBC Distribution Width 20.6 % (11.5-14.5); Red Blood Cell (RBC) Count 2.54 mill/uL (4.20-5.40); White Blood Cell (WBC) Count 10.2 10x3/uL (4.8-10.8)
[2023-02-11] MEDS ORDERED: LOKELMA 10 GM PACKET PO SCH (10:45)
[2023-02-11] MEDS ORDERED: Iopamidol-370 76% 500 ML MDV (1 ML CHARGE) ONE (10:45)
[2023-02-11 10:58] LABS: MDiff Complete? YES; Macrocytosis SLIGHT = 6-15 cells (100X) (0-5/hpf); Platelet Morphology Comment Appears Decreased; Polychromasia SLIGHT = 2-3 cells (100X) (0-2/hpf)
[2023-02-11 12:43] LABS: Anion Gap 20 mmol/L (10-20); BUN (Urea Nitrogen) 46 mg/dL (9.8-20.1); Calc. Creatinine Clearance 47 mL/min (70-130); Calcium 8.9 mg/dL (7.8-10.44); Carbon Dioxide 13 mmol/L (23-31); Chloride 105 mmol/L (98-107); Estimated GFR 55; Glucose 83 mg/dL (80-115); Sodium 132 mmol/L (136-145)
[2023-02-11] MEDS ORDERED: Dextrose 5 % And 0.9 % NaCl 1,000 ML IV SCH (13:15)
[2023-02-11 13:17] LABS: Potassium 6.2 mmol/L (3.5-5.1)
[2023-02-11] MEDS: Pantoprazole 80 MG, Admixture Fee 1 EACH in Sodium Chloride 0.9% 100 ML IVPB SCH (13:43)
[2023-02-11] MEDS ORDERED: Albumin 25% 25 GM/100 ML BOT IVPB SCH ×2 (14:15→19:45)
[2023-02-11] MEDS: NOREPINEPHRINE 8 MG/250 ML-D5W 250 ML IVPB SCH (15:11)
[2023-02-11 18:05] LABS: Hemoglobin 8.8 g/dL (12.0-16.0); Mean Corpuscular HGB CONC 35.8 g/dL (32.0-36.0); Mean Corpuscular Hemoglobin 37.4 pg (27.0-31.0); Mean Platelet Volume 14.4 fL (7.4-10.4); Platelet Count 15 10x3/uL (130-400); Red Blood Cell (RBC) Count 2.35 mill/uL (4.20-5.40); White Blood Cell (WBC) Count 4.6 10x3/uL (4.8-10.8)
[2023-02-11 18:23] LABS: Band 7 % (5-11); Large Platelets SLIGHT; Lymphocytes 15 % (21-51); MDiff Complete? YES; Macrocytosis SLIGHT = 6-15 cells (100X) (0-5/hpf); Monocytes 3 % (0-10); Myelocyte 2 % (0-0); Neutrophil 71 % (42-75); Nucleated RBC 3 % (0); Platelet Morphology Comment Appears Decreased; Polychromasia SLIGHT = 2-3 cells (100X) (0-2/hpf); Reactive Lymphocytes 2 % (0-10); Target Cells SLIGHT = 2-5 cells (100X) (0-1/hpf); Toxic Granulation SLIGHT
[2023-02-11] MEDS: Dextrose 5 % And 0.9 % NaCl 1,000 ML IV SCH (18:51)
[2023-02-11] MEDS ORDERED: fentaNYL 50 mcg/mL 1 mL Vial SLOW IVP SCH (20:00)
[2023-02-11] MEDS: Rifaximin 550 MG TAB PO SCH (20:06)
[2023-02-11] MEDS ORDERED: Lorazepam 2 MG/ML VIAL ONE ×2 (20:54→21:50)
[2023-02-11 21:41] LABS: Actual Bicarbonate (HCO3a) 18.4 mEq/L (22-28); Base Excess (BEa) -5.1 mEq/L (-2.0 to +3.0); CO2 Tension 28.7 mmHg (35.0-45.0); Calcium, Ionized (arterial) 1.07 mmol/L (1.12-1.30); Carboxyhemoglobin (COHb) 2.3 gm% (0.0-3.0); Hematocrit-ABG 26 % (36.0-47.0); Hemoglobin (Hb) 8.9 g/dL (12.0-16.0); Potassium - ABG Lab 5.23 mmol/L (3.70-5.30); pH, Arterial 7.425 (7.35-7.45)
[2023-02-11] MEDS ORDERED: Lorazepam 2 MG/ML VIAL SLOW IVP SCH (21:45)
[2023-02-11 21:47] LABS: O2 Tension (PaO2), arterial 37.4 mmHg (> 70.0)
[2023-02-11 21:48] LABS: Puncture Site LRA
[2023-02-11 21:59] LABS: INR-International Normal Ratio 5.1; Prothrombin Time 49.2 sec (12.0-14.7)
[2023-02-11 22:00] LABS: PTT 88.9 sec (22.9-36.1)
[2023-02-11 22:13] LABS: Anion Gap 20 mmol/L (10-20); BUN (Urea Nitrogen) 45 mg/dL (9.8-20.1); Calc. Creatinine Clearance 39 mL/min (70-130); Calcium 8.7 mg/dL (7.8-10.44); Carbon Dioxide 16 mmol/L (23-31); Chloride 104 mmol/L (98-107); Estimated GFR 44; Glucose 103 mg/dL (80-115); Potassium 5.1 mmol/L (3.5-5.1); Sodium 135 mmol/L (136-145)
[2023-02-11] MEDS ORDERED: Calcium Chloride 1 GM/10 ML Abboject SYRINGE IVP SCH (22:15)
[2023-02-11] MEDS ORDERED: Morphine 2 MG/ML VIAL SLOW IVP PRN (22:25)
[2023-02-12] MEDS: Sodium Chloride 1 GM TAB PO SCH ×3 (01:29→15:31)
[2023-02-12] MEDS: Pantoprazole 80 MG, Admixture Fee 1 EACH in Sodium Chloride 0.9% 100 ML IVPB SCH ×2 (01:30→08:23)
[2023-02-12] MEDS: Dextrose 5 % And 0.9 % NaCl 1,000 ML IV SCH (04:20)
[2023-02-12 04:33] LABS: Lactic Acid 4.4 mmol/L (0.5-2.2)
[2023-02-12 04:37] LABS: Anion Gap 20 mmol/L (10-20); BUN (Urea Nitrogen) 46 mg/dL (9.8-20.1); Calc. Creatinine Clearance 32 mL/min (70-130); Calcium 9.8 mg/dL (7.8-10.44); Carbon Dioxide 18 mmol/L (23-31); Chloride 104 mmol/L (98-107); Estimated GFR 35; Glucose 113 mg/dL (80-115); Magnesium 2.3 mg/dL (1.6-2.6); Phosphorus 4.6 mg/dL (2.3-4.7); Potassium 4.6 mmol/L (3.5-5.1); Sodium 137 mmol/L (136-145)
[2023-02-12 04:39] LABS: Hemoglobin 6.5 g/dL (12.0-16.0); Mean Corpuscular HGB CONC 34.8 g/dL (32.0-36.0); Mean Corpuscular Hemoglobin 36.6 pg (27.0-31.0); Mean Platelet Volume 8.1 fL (7.4-10.4); Platelet Count 122 10x3/uL (130-400); RBC Distribution Width 21.2 % (11.5-14.5); Red Blood Cell (RBC) Count 1.76 mill/uL (4.20-5.40)
[2023-02-12 05:08] LABS: Band 30 % (5-11); Lymphocytes 9 % (21-51); MDiff Complete? YES; Macrocytosis SLIGHT = 6-15 cells (100X) (0-5/hpf); Monocytes 6 % (0-10); Neutrophil 55 % (42-75); Nucleated RBC 4 % (0); Platelet Morphology Comment Appears Decreased; Polychromasia MODERATE = 3-4 cells (100X) (0-2/hpf); Target Cells SLIGHT = 2-5 cells (100X) (0-1/hpf); Toxic Granulation SLIGHT; White Blood Cell (WBC) Count 10.1 10x3/uL (4.8-10.8)
[2023-02-12] MEDS: Piperacillin/Tazobactam 3.375 GM in Sodium Chloride 0.9% 100 ML IVPB SCH ×3 (05:15→22:57)
[2023-02-12 07:06] LABS: Actual Bicarbonate (HCO3a) 20.1 mEq/L (22-28); Base Excess (BEa) -3.1 mEq/L (-2.0 to +3.0); Calcium, Ionized (arterial) 1.07 mmol/L (1.12-1.30); Carboxyhemoglobin (COHb) 3.1 gm% (0.0-3.0); Hematocrit-ABG 20 % (36.0-47.0); Hemoglobin (Hb) 6.8 g/dL (12.0-16.0); O2 Tension (PaO2), arterial 62.4 mmHg (> 70.0); pH, Arterial 7.473 (7.35-7.45)
[2023-02-12 07:07] LABS: Puncture Site RRA
[2023-02-12 07:27] VITALS: BP 109/42
[2023-02-12] MEDS ORDERED: Sodium Bicarbonate 150 MEQ in Dextrose 5% in Water 1,000 ML IV SCH ×2 (07:30→17:53)
[2023-02-12] MEDS ORDERED: Calcium Chloride 1 GM/10 ML Abboject SYRINGE IVP SCH ×2 (07:45→18:15)
[2023-02-12 08:25] LABS: INR-International Normal Ratio 3.2; PTT 45.4 sec (22.9-36.1); Prothrombin Time 33.8 sec (12.0-14.7)
[2023-02-12] MEDS ORDERED: Phytonadione 10 MG/ML AMP SLOW IVP SCH (10:00)
[2023-02-12] MEDS ORDERED: Iopamidol-370 76% 500 ML MDV (1 ML CHARGE) ONE (10:30)
[2023-02-12] MEDS ORDERED: Phytonadione 10 MG in Sodium Chloride 0.9% 50 ML IVPB SCH (10:30)
[2023-02-12] MEDS: Ferrous Sulfate 325 MG TAB PO SCH ×2 (11:09→15:31)
[2023-02-12 11:29] LABS: D-Dimer Test 15.33 *mcg/mL (0.27-0.43)
[2023-02-12 11:54] LABS: Lactic Acid 3.3 mmol/L (0.5-2.2)
[2023-02-12] MEDS ORDERED: Sodium Bicarb 50 MEQ/50 ML VIAL IVP SCH (12:45)
[2023-02-12] MEDS: Ascorbic Acid 500 mg Chewable Tablet PO SCH ×2 (13:16→20:17)
[2023-02-12] MEDS: NOREPINEPHRINE 8 MG/250 ML-D5W 250 ML IVPB SCH (13:17)
[2023-02-12] MEDS: Rifaximin 550 MG TAB PO SCH ×2 (13:17→20:17)
[2023-02-12] MEDS: Ursodiol 300 MG CAP PO SCH ×3 (13:17→20:17)
[2023-02-12 13:28] LABS: Hemoglobin 7.7 g/dL (12.0-16.0); Mean Corpuscular HGB CONC 33.4 g/dL (32.0-36.0); Platelet Count 91 10x3/uL (130-400); RBC Distribution Width 20.9 % (11.5-14.5); Red Blood Cell (RBC) Count 2.26 mill/uL (4.20-5.40); White Blood Cell (WBC) Count 11.5 10x3/uL (4.8-10.8)
[2023-02-12 13:51] LABS: Anisocytosis SLIGHT = 6-15 cells (100X) (0-5/hpf); Band 23 % (5-11); Lymphocytes 9 % (21-51); MDiff Complete? YES; Macrocytosis SLIGHT = 6-15 cells (100X) (0-5/hpf); Monocytes 9 % (0-10); Myelocyte 1 % (0-0); Neutrophil 58 % (42-75); Nucleated RBC 4 % (0); Platelet Morphology Comment Appears Decreased; Polychromasia MODERATE = 3-4 cells (100X) (0-2/hpf); Target Cells SLIGHT = 2-5 cells (100X) (0-1/hpf); Toxic Granulation SLIGHT
[2023-02-12 17:51] LABS: Hemoglobin 7.6 g/dL (12.0-16.0); Mean Corpuscular HGB CONC 34.3 g/dL (32.0-36.0); Mean Platelet Volume 8.3 fL (7.4-10.4); Platelet Count 62 10x3/uL (130-400); RBC Distribution Width 20.8 % (11.5-14.5); Red Blood Cell (RBC) Count 2.18 mill/uL (4.20-5.40); White Blood Cell (WBC) Count 10.7 10x3/uL (4.8-10.8)
[2023-02-12 17:55] LABS: Actual Bicarbonate (HCO3a) 21.2 mEq/L (22-28); Base Excess (BEa) -1.8 mEq/L (-2.0 to +3.0); CO2 Tension 28.6 mmHg (35.0-45.0); Calcium, Ionized (arterial) 1.11 mmol/L (1.12-1.30); Carboxyhemoglobin (COHb) 2.5 gm% (0.0-3.0); Hematocrit-ABG 22 % (36.0-47.0); Hemoglobin (Hb) 7.5 g/dL (12.0-16.0); Potassium - ABG Lab 4.09 mmol/L (3.70-5.30); pH, Arterial 7.487 (7.35-7.45)
[2023-02-12 17:59] LABS: O2 Tension (PaO2), arterial 55.7 mmHg (> 70.0); Puncture Site LBA
[2023-02-12 18:02] LABS: INR-International Normal Ratio 2.6; PTT 43.2 sec (22.9-36.1); Prothrombin Time 28.8 sec (12.0-14.7)
[2023-02-12 18:23] LABS: ALT (SGPT) 5984 U/L (8-55)
[2023-02-12 18:25] LABS: AST (SGOT) Greater than 3500 U/L (5-34); Albumin 3.3 g/dL (3.4-4.8); Alkaline Phosphatase 1160 U/L (40-110); Anion Gap 20 mmol/L (10-20); BUN (Urea Nitrogen) 44 mg/dL (9.8-20.1); Bilirubin, Direct 7.5 mg/dL (0.1-0.3); Bilirubin, Total 13.4 mg/dL (0.2-1.2); Calc. Creatinine Clearance 31 mL/min (70-130); Calcium 10.3 mg/dL (7.8-10.44); Carbon Dioxide 21 mmol/L (23-31); Chloride 102 mmol/L (98-107); Estimated GFR 30; Glucose 91 mg/dL (80-115); Magnesium 2.3 mg/dL (1.6-2.6); Phosphorus 5.2 mg/dL (2.3-4.7); Potassium 4.2 mmol/L (3.5-5.1); Protein, Total 5.1 g/dL (5.8-8.1); Sodium 139 mmol/L (136-145)
[2023-02-12 18:32] LABS: Anisocytosis SLIGHT = 6-15 cells (100X) (0-5/hpf); Band 20 % (5-11); Lymphocytes 13 % (21-51); MDiff Complete? YES; Macrocytosis SLIGHT = 6-15 cells (100X) (0-5/hpf); Metamyelocyte 1 % (0-0); Monocytes 7 % (0-10); Neutrophil 57 % (42-75); Nucleated RBC 1 % (0); Platelet Morphology Comment Appears Decreased; Polychromasia MODERATE = 3-4 cells (100X) (0-2/hpf); Reactive Lymphocytes 2 % (0-10); Target Cells SLIGHT = 2-5 cells (100X) (0-1/hpf)
[2023-02-12] MEDS ORDERED: Albumin 25% 25 GM/100 ML BOT IVPB SCH (23:00)
[2023-02-13] MEDS: Sodium Chloride 1 GM TAB PO SCH ×3 (00:32→16:58)
[2023-02-13] MEDS ORDERED: Furosemide 20 MG/2 ML VIAL SLOW IVP SCH (04:06)
[2023-02-13] MEDS ORDERED: Sodium Bicarbonate 150 MEQ in Dextrose 5% in Water 1,000 ML IV SCH (04:07)
[2023-02-13] MEDS: Pantoprazole 80 MG, Admixture Fee 1 EACH in Sodium Chloride 0.9% 100 ML IVPB SCH (04:21)
[2023-02-13 04:52] LABS: INR-International Normal Ratio 3.7; PTT 45.7 sec (22.9-36.1); Prothrombin Time 38.4 sec (12.0-14.7)
[2023-02-13 04:58] LABS: Lactic Acid 3.2 mmol/L (0.5-2.2)
[2023-02-13 05:01] LABS: Band 44 % (5-11); Hemoglobin 7.7 g/dL (12.0-16.0); Hypochromia SLIGHT = 6-15 cells (100X) (0-5/hpf); Lymphocytes 18 % (21-51); MDiff Complete? YES; Macrocytosis SLIGHT = 6-15 cells (100X) (0-5/hpf); Mean Corpuscular HGB CONC 35.3 g/dL (32.0-36.0); Mean Corpuscular Hemoglobin 36.4 pg (27.0-31.0); Mean Platelet Volume 8.9 fL (7.4-10.4); Metamyelocyte 1 % (0-0); Monocytes 1 % (0-10); Neutrophil 36 % (42-75); Nucleated RBC 1 % (0); Platelet Count 61 10x3/uL (130-400); Platelet Morphology Comment Appears Decreased; RBC Distribution Width 21.5 % (11.5-14.5); Red Blood Cell (RBC) Count 2.11 mill/uL (4.20-5.40); White Blood Cell (WBC) Count 13.2 10x3/uL (4.8-10.8)
[2023-02-13 05:16] LABS: Albumin 3.4 g/dL (3.4-4.8); Alkaline Phosphatase 1098 U/L (40-110); Anion Gap 19 mmol/L (10-20); BUN (Urea Nitrogen) 47 mg/dL (9.8-20.1); Bilirubin, Direct 8.2 mg/dL (0.1-0.3); Bilirubin, Total 14.9 mg/dL (0.2-1.2); Calc. Creatinine Clearance 26 mL/min (70-130); Calcium 11.3 mg/dL (7.8-10.44); Carbon Dioxide 23 mmol/L (23-31); Chloride 102 mmol/L (98-107); Estimated GFR 25; Glucose 89 mg/dL (80-115); Magnesium 2.5 mg/dL (1.6-2.6); Potassium 4.1 mmol/L (3.5-5.1); Protein, Total 5.1 g/dL (5.8-8.1); Sodium 140 mmol/L (136-145)
[2023-02-13 05:29] LABS: ALT (SGPT) 5491 U/L (8-55)
[2023-02-13 05:39] LABS: AST (SGOT) Greater than 3500 U/L (5-34)
[2023-02-13] MEDS: Piperacillin/Tazobactam 3.375 GM in Sodium Chloride 0.9% 100 ML IVPB SCH (05:39)
[2023-02-13] MEDS ORDERED: VANC IVPB PRN (06:34)
[2023-02-13] MEDS ORDERED: VANCOMYCIN 1.25 GM/250 ML BAG 1.25 GM in Premix Bag 1 BAG IVPB SCH (07:15)
[2023-02-13] MEDS ORDERED: Vancomycin Dose by Levels Sliding Scale (Wt <71) FS SCH (07:15)
[2023-02-13] MEDS: Rifaximin 550 MG TAB PO SCH ×2 (08:37→22:25)
[2023-02-13] MEDS: Ursodiol 300 MG CAP PO SCH ×3 (08:37→21:00)
[2023-02-13] MEDS: Ferrous Sulfate 325 MG TAB PO SCH ×2 (08:37→16:58)
[2023-02-13] MEDS: Ascorbic Acid 500 mg Chewable Tablet PO SCH ×2 (08:37→21:00)
[2023-02-13] MEDS ORDERED: Meropenem 1 GM in Sodium Chloride 0.9% 100 ML IVPB SCH ×2 (08:45→15:00)
[2023-02-13 08:52] LABS: Actual Bicarbonate (HCO3v) 21.9 mEq/L (22-28); Base Excess -0.4 mEq/L (-2.0 to +3.0); Calcium, Ionized (venous) 1.13 mmol/L (1.16-1.32); Chloride (VBG) 102 mmol/L (98-106); Hematocrit-VBG 24 % (36.0-47.0); Potassium (VBG) 4.09 mmol/L (3.70-5.30); Sodium 135.9 mmol/L (133-146); pH (venous) 7.528 (7.32-7.43)
[2023-02-13 11:16] LABS: SARS-CoV-2 NAA Rapid Test Not Detected (NotDetected)
[2023-02-13 13:05] VITALS: BMI 27.6
[2023-02-13] MEDS ORDERED: Dextrose 5 % And 0.9 % NaCl 1,000 ML IV SCH (13:15)
[2023-02-13] MEDS ORDERED: Lactulose 10 GM/15 ML Oral Solution PR SCH ×2 (14:00→21:00)
[2023-02-13 20:18] VITALS: TEMP 97.6
[2023-02-13] MEDS ORDERED: Ketamine 50 MG/ML (10ML VIAL) SLOW IVP SCH ×2 (20:30→23:45)
[2023-02-13] MEDS ORDERED: fentaNYL 50 mcg/mL 1 mL Vial SLOW IVP SCH (20:45)
[2023-02-13] MEDS ORDERED: Midazolam HCl 2 mg/2 ml Vial SLOW IVP SCH ×2 (20:45→23:45)
[2023-02-13] MEDS ORDERED: EPINEPHrine 1 MG/10 ML Abboject SYRINGE ONE (20:57)
[2023-02-13] MEDS ORDERED: Pantoprazole 40 MG VIAL IVP SCH (21:00)
[2023-02-13] MEDS ORDERED: Rocuronium Bromide 10 MG/ML (10ML VIAL) ONE (21:40)
[2023-02-13] MEDS ORDERED: Ventilator Sedation Protocol 1 EACH FS SCH (21:45)
[2023-02-13] MEDS: NOREPINEPHRINE 8 MG/250 ML-D5W 250 ML IVPB SCH (22:15)
[2023-02-13] MEDS ORDERED: Fentanyl BOLUS 250 ML IVPB PRN (22:15)
[2023-02-13] MEDS ORDERED: DISCONTINUE PREVIOUS NARCOTIC PAIN MEDICATIONS AND BENZODIAZEPINES FS SCH (22:15)
[2023-02-13] MEDS ORDERED: Propofol 1,000 MG/100 ML VIAL IV PRN (22:15)
[2023-02-13] MEDS ORDERED: Propofol BOLUS 1,000 MG/100 ML VIAL IV PRN (22:15)
[2023-02-13] MEDS ORDERED: Lorazepam 2 MG/ML VIAL SLOW IVP PRN (22:15)
[2023-02-13] MEDS ORDERED: Fentanyl CADD 100 ML IV SCH (22:15)
[2023-02-13] MEDS ORDERED: Morphine 2 MG/ML VIAL SLOW IVP PRN (22:15)
[2023-02-13] MEDS: Scopolamine 1.5 mg/72 hour Patch TD SCH (22:26)
[2023-02-13 22:30] LABS: Actual Bicarbonate (HCO3a) 19.6 mEq/L (22-28); CO2 Tension 27.9 mmHg (35.0-45.0); pH, Arterial 7.464 (7.35-7.45)
[2023-02-13 22:31] LABS: Base Excess (BEa) -3.5 mEq/L (-2.0 to +3.0); Calcium, Ionized (arterial) 1.09 mmol/L (1.12-1.30); Carboxyhemoglobin (COHb) 2.4 gm% (0.0-3.0); Hematocrit-ABG 25 % (36.0-47.0); Hemoglobin (Hb) 8.5 g/dL (12.0-16.0)
[2023-02-13 22:43] LABS: O2 Tension (PaO2), arterial 47.3 mmHg (> 70.0)
[2023-02-13 22:44] LABS: Puncture Site RBA
[2023-02-13 22:45] LABS: Actual Bicarbonate (HCO3a) 19.9 mEq/L (22-28); CO2 Tension 27.8 mmHg (35.0-45.0); Calcium, Ionized (arterial) 1.11 mmol/L (1.12-1.30); Carboxyhemoglobin (COHb) 2.5 gm% (0.0-3.0); Hematocrit-ABG 26 % (36.0-47.0); pH, Arterial 7.473 (7.35-7.45)
[2023-02-13 22:45] LABS: ALV-art Gradient 345.625 mmHg (0-20)
[2023-02-13 22:46] LABS: O2 Tension (PaO2), arterial 50.8 mmHg (> 70.0); Puncture Site LRA
[2023-02-13 23:05] LABS: Anion Gap 25 mmol/L (10-20); BUN (Urea Nitrogen) 49 mg/dL (9.8-20.1); Calc. Creatinine Clearance 21 mL/min (70-130); Calcium 9.7 mg/dL (7.8-10.44); Carbon Dioxide 17 mmol/L (23-31); Chloride 106 mmol/L (98-107); Estimated GFR 19; Glucose 86 mg/dL (80-115); Sodium 144 mmol/L (136-145)
[2023-02-13 23:11] LABS: Hemoglobin 8.9 g/dL (12.0-16.0); Red Blood Cell (RBC) Count 2.28 mill/uL (4.20-5.40); White Blood Cell (WBC) Count 20.8 10x3/uL (4.8-10.8)
[2023-02-13] MEDS ORDERED: EPINEPHrine 1 MG/10 ML Abboject SYRINGE IVP SCH (23:45)
[2023-02-14 00:14] LABS: Band 14 % (5-11); Burr Cells SLIGHT = 2-5 cells (100X) (0-1/hpf); Lymphocytes 11 % (21-51); MDiff Complete? YES; Macrocytosis MODERATE=16-30 cells (100X) (0-5/hpf); Mean Platelet Volume 10.1 fL (7.4-10.4); Myelocyte 1 % (0-0); Neutrophil 74 % (42-75); Ovalocytes SLIGHT = 2-5 cells (100X) (0-1/hpf); Platelet Count 98 10x3/uL (130-400); Platelet Morphology Comment Appears Decreased; Polychromasia SLIGHT = 2-3 cells (100X) (0-2/hpf); RBC Distribution Width 22.5 % (11.5-14.5); Toxic Granulation SLIGHT
== END 2023-02-13 23:24 | disposition short-term general hospital (02) | DRG 480 ==
LOC: ERS 14:33 → SJJU 17:42 → CCU 02-11 00:41
PROVIDERS: ADMIT Student in an Organized Health Care Education/Training Program; ATTEND Student in an Organized Health Care Education/Training Program
PROC: 0QS606Z Reposition Right Upper Femur with Intramedullary Internal Fixation Device, Open Approach (ICD-10-PCS; principal; 2023-02-04)
PROC: 30233N1 Transfusion of Nonautologous Red Blood Cells into Peripheral Vein, Percutaneous Approach (ICD-10-PCS; 2023-02-10)
PROC: 02HV33Z Insertion of Infusion Device into Superior Vena Cava, Percutaneous Approach (ICD-10-PCS; 2023-02-11)
PROC: 3E043XZ Introduction of Vasopressor into Central Vein, Percutaneous Approach (ICD-10-PCS; 2023-02-11)
PROC: 30233J1 Transfusion of Nonautologous Serum Albumin into Peripheral Vein, Percutaneous Approach (ICD-10-PCS; 2023-02-11)
PROC: 4A133R1 Monitoring of Arterial Saturation, Peripheral, Percutaneous Approach (ICD-10-PCS; 2023-02-11)
PROC: 30233K1 Transfusion of Nonautologous Frozen Plasma into Peripheral Vein, Percutaneous Approach (ICD-10-PCS; 2023-02-11)
PROC: 6A551Z2 Pheresis of Platelets, Multiple (ICD-10-PCS; 2023-02-11)
PROC: 0D9670Z Drainage of Stomach with Drainage Device, Via Natural or Artificial Opening (ICD-10-PCS; 2023-02-12)
PROC: 5A0945A Assistance with Respiratory Ventilation, 24-96 Consecutive Hours, High Flow/Velocity Cannula (ICD-10-PCS; 2023-02-12)
PROC: 30233M1 Transfusion of Nonautologous Plasma Cryoprecipitate into Peripheral Vein, Percutaneous Approach (ICD-10-PCS; 2023-02-12)
PROC: 0BH17EZ Insertion of Endotracheal Airway into Trachea, Via Natural or Artificial Opening (ICD-10-PCS; 2023-02-13)
PROC: 5A1935Z Respiratory Ventilation, Less than 24 Consecutive Hours (ICD-10-PCS; 2023-02-13)
DX: S72.141A Displaced intertrochanteric fracture of right femur, initial encounter for closed fracture (principal); A41.9 Sepsis, unspecified organism; K72.00 Acute and subacute hepatic failure without coma; D65 Disseminated intravascular coagulation [defibrination syndrome]; J96.00 Acute respiratory failure, unspecified whether with hypoxia or hypercapnia; S42.291A Other displaced fracture of upper end of right humerus, initial encounter for closed fracture; K83.01 Primary sclerosing cholangitis; E87.1 Hypo-osmolality and hyponatremia; E87.20 Acidosis, unspecified; N17.9 Acute kidney failure, unspecified; Z66 Do not resuscitate; K76.82 Hepatic encephalopathy; K74.60 Unspecified cirrhosis of liver; E87.5 Hyperkalemia; E88.09 Other disorders of plasma-protein metabolism, not elsewhere classified; I12.9 Hypertensive chronic kidney disease with stage 1 through stage 4 chronic kidney disease, or unspecified chronic kidney disease; N18.30 Chronic kidney disease, stage 3 unspecified; D63.8 Anemia in other chronic diseases classified elsewhere; E78.5 Hyperlipidemia, unspecified; K75.4 Autoimmune hepatitis; Z20.822 Contact with and (suspected) exposure to COVID-19; Z88.8 Allergy status to other drugs, medicaments and biological substances; Z88.5 Allergy status to narcotic agent; Z79.899 Other long term (current) drug therapy; Z90.49 Acquired absence of other specified parts of digestive tract; Z98.890 Other specified postprocedural states; Z80.1 Family history of malignant neoplasm of trachea, bronchus and lung; W01.0XXA Fall on same level from slipping, tripping and stumbling without subsequent striking against object, initial encounter
CPT/HCPCS: 36415; 36416; 36430; 36600; 51702; 70450; 71045; 71046; 71275; 72170; 74018; 74177; 80048; 80053; 80076; 81003; 81015; 82140; 82533; 82805; 83605; 83690; 83735; 83880; 84100; 84145; 84484; 85025; 85379; 85384; 85610; 85730; 86850; 86900; 86901; 87040; 87077; 87086; 87186; 93005; 93010; 93306; 94002; 94640; 96374; 96375; 99284; C1713; C9113; G0390; J0171; J1100; J1650; J1720; J1815; J1940; J2060; J2185; J2250; J2270; J2272; J2370; J2405; J2543; J2704; J3010; J3370; J3430; J3475; J3490; J7042; J7050; J7070; J7611; P9012; P9016; P9035; P9045; P9047; P9059; Q9967; S0028; U0002

== ENCOUNTER 2025-06-06 09:35 | Outpatient (CLI) | payer MEDICARE | END 2025-06-06 09:36 | disposition home or self-care (01) | LOC: RAD 09:35 | PROVIDERS: ATTEND Internal Medicine Gastroenterology | DX: R13.19 Other dysphagia (principal); K21.9 Gastro-esophageal reflux disease without esophagitis | CPT/HCPCS: 74230 ==

== ENCOUNTER 2025-08-02 04:59 | Emergency (ER) | payer MEDICARE ==
[2025-08-02 05:57] LABS: #Basophils 0.04 10x3/uL (0.0-0.2); #Eosinophils 0.03 10x3/uL (0.0-0.7); #Monocytes 1.17 10x3/uL (0.11-0.59); #Neutrophils 8.69 10x3/uL (1.40-6.50); %Basophils 0.3 % (0.0-1.0); %Eosinophils 0.3 % (0.0-10.0); %Lymphocytes 16.1 % (21.0-51.0); %Monocytes 9.8 % (0.0-10.0); %Neutrophils 72.6 % (42.0-75.0); Hematocrit 34.2 % (36.0-47.0); Hemoglobin 11.7 g/dL (12.0-16.0); Mean Corpuscular Hemoglobin 32.1 pg (27.0-31.0); Mean Corpuscular Volume 94.0 fL (78.0-98.0); Platelet Count 242 10x3/uL (130-400); Red Blood Cell (RBC) Count 3.64 mill/uL (4.20-5.40); White Blood Cell (WBC) Count 11.97 10x3/uL (4.8-10.8)
[2025-08-02 06:12] LABS: Anion Gap 10 mmol/L (10-20); BUN (Urea Nitrogen) 9 mg/dL (9.8-20.1); Calc. Creatinine Clearance 0 mL/min (70-130); Calcium 9.6 mg/dL (7.8-10.44); Carbon Dioxide 24 mmol/L (23-31); Chloride 102 mmol/L (98-107); Glucose 109 mg/dL (83-110); Magnesium 1.4 mg/dL (1.6-2.6); Potassium 3.4 mmol/L (3.5-5.1); Sodium 133 mmol/L (136-145)
[2025-08-02] MEDS ORDERED: Magnesium 2 GM/50 ML BAG (IN WATER) ONE (06:39)
[2025-08-02] MEDS ORDERED: Ondansetron PF 4 MG/2 ML Vial ONE ×2 (08:33→14:16)
[2025-08-02] MEDS ORDERED: Iopamidol-370 76% 500 ML MDV (1 ML CHARGE) ONE (10:09)
[2025-08-02 10:23] LABS: Bacteria/HPF None Seen HPF (None Seen); CAUTI Indications for Culture Pelvic or flank pain; Glucose, Urine (Dipstick) Normal (Negative); Leukocyte Negative Leu/uL (Negative); Protein, Urine (Dipstick) Negative (Neg-Trace); RBC/HPF 0-3 HPF (0-3); Specific Gravity, Urine 1.025 (1.002-1.036); WBC/HPF 0-3 HPF (0-3)
[2025-08-02 10:35] LABS: Urine Culture Reflex No No
[2025-08-02] MEDS ORDERED: Lidocaine Viscous Sol 2% 15 ml UD Cup ONE ×2 (11:24→15:59)
[2025-08-02] MEDS ORDERED: Mag-Al 1200 mg/1200 mg/30 ML UDCUP ONE (11:24)
[2025-08-02] MEDS ORDERED: Milk Of Magnesia 30 ML UDCUP ONE (15:58)
== END 2025-08-02 16:58 ==
LOC: ERS 04:59
DX: R55 Syncope and collapse (principal); S32.011A Stable burst fracture of first lumbar vertebra, initial encounter for closed fracture; S39.011A Strain of muscle, fascia and tendon of abdomen, initial encounter; S76.012A Strain of muscle, fascia and tendon of left hip, initial encounter; Z79.899 Other long term (current) drug therapy; W19.XXXA Unspecified fall, initial encounter
CPT/HCPCS: 70450; 71275; 72125; 72170; 73552; 74177; 80048; 81001; 82962; 83735; 84484; 85025; 85379; 93005; 96374; 96375; 99285; J3475; Q9967; 36416; J2405